=== PATIENT | female | born 1940 | race Caucasian/White ===

== ENCOUNTER 2017-10-08 14:14 | Inpatient (IN) | payer MEDICAID ==
[~2017-10-08] VITALS: Ht 160 cm; Wt 88.9 kg
[~2017-10-08 14:14] MED LIST: GLUCOTROL; HCTZ; METFORMIN; QUINIPRIL; WARFARIN PO
[2017-10-08] MEDS ORDERED: ONDANSETRON HCL 4MG/2ML VIAL IV ONE (15:00)
[2017-10-08 15:32] LABS: BASOPHILS % 0.2 % (0.0-2.0); EOSINOPHILS % 0.4 % (0.0-5.0); HEMATOCRIT. 37.7 % (36.0-48.0); HEMOGLOBIN. 12.5 g/dL (12.0-16.0); LYMPHOCYTES % 4.1 % (20.0-50.0); MEAN CORPUSCULAR HEMOGLOBIN 27.2 pg (28.0-32.0); MEAN CORPUSCULAR VOLUME 82.1 fL (81.0-99.0); MEAN PLATELET VOLUME 7.7 fl (7.4-10.4); MONOCYTES % 5.1 % (2.0-8.0); NEUTROPHILS % 90.2 % (40.0-76.0); PLATELET 257 x1000/uL (130-400); RED BLOOD CELL COUNT 4.59 mill/uL (4.2-5.4); RED CELL DISTRIBUTION WIDTH 17.7 % (11.6-14.6)
[2017-10-08 15:46] LABS: BETA HYDROXYBUTYRATE 0.1 mMol/L (0.0-0.3); CARBON DIOXIDE 31 mEq/L (21-32); CHLORIDE 106 mEq/L (98-107); TROPONIN I 0.14 ng/mL (0.00-0.04)
[2017-10-08 15:49] LABS: AMMONIA < 25 uMol/L (<32)
[2017-10-08 15:53] LABS: CLARITY URINE CLEAR (CLEAR); COLOR URINE YELLOW (YELLOW); KETONES URINE NEGATIVE (NEGATIVE); LEUKOCYTE ESTERASE URINE NEGATIVE (NEGATIVE); NITRITE URINE NEGATIVE (NEGATIVE); OCCULT BLOOD URINE NEGATIVE (NEGATIVE); PH URINE 5.5 (4.5-8.0); PROTEIN URINE TRACE (NEGATIVE); SPECIFIC GRAVITY URINE 1.017 (1.005-1.030); UROBILINOGEN URINE 0.2 E.U./dL (0.2-1.0)
[2017-10-08 16:11] LABS: PROTHROMBIN TIME > 100.0 sec (9.4-11.6)
[2017-10-08 16:12] LABS: INR > 10.0
[2017-10-08] MEDS ORDERED: GUAIFENESIN 200MG/10ML SUGAR FREE UDC PO PRN (18:45)
[2017-10-08] MEDS ORDERED: MAGNESIUM/ALUMINUM HYDROXIDE/SIMETHICONE 30ML UDC PO PRN (18:45)
[2017-10-08] MEDS ORDERED: NA PHOS,M-B/NA PHOS,DI-BA ENEMA 118ML PR PRN (18:45)
[2017-10-08] MEDS ORDERED: IPRATROPIUM/ALBUTEROL 0.5-3(2.5)MG/3ML NEB INH PRN (18:45)
[2017-10-08] MEDS ORDERED: NITROGLYCERIN 0.4MG TABLET SL SL PRN (18:45)
[2017-10-08] MEDS ORDERED: ONDANSETRON HCL 4MG/2ML VIAL IV PRN (18:45)
[2017-10-08] MEDS ORDERED: DIPHENHYDRAMINE 50MG/ML VIAL IV PRN (18:45)
[2017-10-08] MEDS ORDERED: DOCUSATE SODIUM 100MG CAPSULE PO PRN (18:45)
[2017-10-08] MEDS ORDERED: LEVOFLOXACIN 500MG PREMIX 100 ML IV SCH ×2 (18:45→22:15)
[2017-10-08] MEDS: ACETAMINOPHEN 325MG TABLET PO PRN (19:00)
[2017-10-08 19:12] LABS: BG BASE EXCESS -0.5 mmol/L (-2.0-2.0); BG CARBOXYHEMOGLOBIN 1.2 % (0.5-1.5); BG DEOXYHEMOGLOBIN 2.3 % (0.0-5.0); BG FRACTION INSPIRED OXYGEN 28; BG HCO3 ACT 30.9 mmol/L (22.0-26.0); BG METHEMOGLOBIN 0.3 % (0.0-1.5); BG OXYGEN SATURATION 97.7 % (92.0-98.5); BG OXYHEMOGLOBIN 96.2 % (94.0-97.0); BG PCO2 92.3 mmHg (35.0-45.0); BG PH 7.142 (7.350-7.450); BG PO2 150.2 mmHg (75.0-100.0); BG SAMPLE SITE RIGHT RADIAL; BG TOTAL HEMOGLOBIN 12.7 g/dL (12.0-18.0); BG VENT MODE NASAL CANNULA
[2017-10-08 20:03] LABS: FOLIC ACID (FOLATE) SERUM 18.1 ng/mL (>5.38)
[2017-10-08] MEDS ORDERED: FAMOTIDINE 20MG/2ML VIAL IV SCH (21:00)
[2017-10-08 21:44] LABS: BG BASE EXCESS -0.8 mmol/L (-2.0-2.0); BG BILEVEL POS AIRWAY PRESSURE 15/5; BG CARBOXYHEMOGLOBIN 1.2 % (0.5-1.5); BG DEOXYHEMOGLOBIN 3.5 % (0.0-5.0); BG FRACTION INSPIRED OXYGEN 28; BG HCO3 ACT 29.2 mmol/L (22.0-26.0); BG METHEMOGLOBIN 0.3 % (0.0-1.5); BG OXYGEN SATURATION 96.4 % (92.0-98.5); BG PCO2 78.8 mmHg (35.0-45.0); BG PH 7.187 (7.350-7.450); BG PO2 106.5 mmHg (75.0-100.0); BG SAMPLE SITE LEFT RADIAL; BG TOTAL HEMOGLOBIN 12.2 g/dL (12.0-18.0); BG VENT MODE MASK - BIPAP; BG VENT RATE 16 set
[2017-10-08 23:10] LABS: TROPONIN I 0.14 ng/mL (0.00-0.04)
[2017-10-09] VITALS (11 sets, daily range): BP systolic 95–156; BP diastolic 51–77
[2017-10-09] MEDS ORDERED: ZOLPIDEM TARTRATE 5MG TABLET PO PRN (00:55)
[2017-10-09] MEDS ORDERED: DEXTROSE 50% WATER 50ML SYRINGE IV PRN (00:56)
[2017-10-09] MEDS ORDERED: PHYTONADIONE 5MG TABLET PO SCH (01:44)
[2017-10-09] MEDS ORDERED: LEVOFLOXACIN 500MG PREMIX 100 ML IV SCH (02:00)
[2017-10-09] MEDS ORDERED: PHYTONADIONE 10MG/ML AMP PO SCH (02:00)
[2017-10-09] MEDS ORDERED: GABA-531 PO (03:10)
[2017-10-09] MEDS ORDERED: LOSA50TA20 PO (03:10)
[2017-10-09] MEDS ORDERED: LIP40 PO (03:10)
[2017-10-09] MEDS ORDERED: OMEP20TA15 PO (03:10)
[2017-10-09] MEDS ORDERED: GLIM2TAB2 PO (03:10)
[2017-10-09] MEDS ORDERED: RANI150C12 PO (03:11)
[2017-10-09] MEDS ORDERED: CALC-3 PO (03:11)
[2017-10-09] MEDS ORDERED: AMOX-405 PO (03:11)
[2017-10-09] MEDS ORDERED: COR12 PO (03:11)
[2017-10-09] MEDS ORDERED: MULT-1078 PO (03:11)
[2017-10-09] MEDS ORDERED: FISH PO (03:11)
[2017-10-09] MEDS: CEFTRIAXONE 1 G PREMIX 50 ML IV SCH (03:14)
[2017-10-09] MEDS: IPRATROPIUM/ALBUTEROL 0.5-3(2.5)MG/3ML NEB HHN SCH ×5 (04:43→21:04)
[2017-10-09] MEDS: METHYLPREDNISOLONE SOD SUCC 125 MG/2 ML VIAL IV SCH ×3 (06:31→22:03)
[2017-10-09] MEDS: BLOOD SUGAR DIAGNOSTIC STRIP TEST SCH ×4 (07:30→21:00)
[2017-10-09 08:41] LABS: CREATINE KINASE MB FRACTION 3.4 ng/mL (0.5-3.6); TROPONIN I 0.13 ng/mL (0.00-0.04)
[2017-10-09] MEDS: GUAIFENESIN/DM 600MG/30MG ER TAB 12HR PO SCH ×2 (09:02→22:03)
[2017-10-09] MEDS: FAMOTIDINE 20MG/2ML VIAL IV SCH (09:02)
[2017-10-09] MEDS: ZINC SULFATE 220 MG ( 50 ) CAPSULE PO SCH (09:02)
[2017-10-09] MEDS: INSULIN LISPRO 100 UNITS/ML SUBCUT SCH ×4 (09:11→23:15)
[2017-10-09 11:39] LABS: BG BASE EXCESS 1.6 mmol/L (-2.0-2.0); BG BILEVEL POS AIRWAY PRESSURE 18/5; BG CARBOXYHEMOGLOBIN 0.9 % (0.5-1.5); BG DEOXYHEMOGLOBIN 3.6 % (0.0-5.0); BG FRACTION INSPIRED OXYGEN 28; BG HCO3 ACT 27.1 mmol/L (22.0-26.0); BG METHEMOGLOBIN 0.3 % (0.0-1.5); BG OXYGEN SATURATION 96.4 % (92.0-98.5); BG OXYHEMOGLOBIN 95.2 % (94.0-97.0); BG PCO2 46.4 mmHg (35.0-45.0); BG PH 7.385 (7.350-7.450); BG PO2 95.2 mmHg (75.0-100.0); BG SAMPLE SITE RIGHT RADIAL; BG VENT MODE MASK - BIPAP; BG VENT RATE 20 set
[2017-10-09] MEDS ORDERED: INFLUENZA VIRUS VACCINE 0.5ML SYR IM ONE (12:00)
[2017-10-09] MEDS ORDERED: FUROSEMIDE 40MG/4ML VIAL IVP NR (15:30)
[2017-10-09 16:54] LABS: CLARITY URINE CLOUDY (CLEAR); COLOR URINE YELLOW (YELLOW); KETONES URINE NEGATIVE (NEGATIVE); LEUKOCYTE ESTERASE URINE TRACE (NEGATIVE); NITRITE URINE NEGATIVE (NEGATIVE); OCCULT BLOOD URINE 3+ (NEGATIVE); PH URINE 5.5 (4.5-8.0); PROTEIN URINE 1+ (NEGATIVE); SPECIFIC GRAVITY URINE 1.018 (1.005-1.030); UROBILINOGEN URINE 0.2 E.U./dL (0.2-1.0)
[2017-10-09] MEDS: TRAMADOL 50MG TABLET PO PRN (19:54)
[2017-10-10] VITALS (12 sets, daily range): BP systolic 107–169; BP diastolic 61–98
[2017-10-10] MEDS: IPRATROPIUM/ALBUTEROL 0.5-3(2.5)MG/3ML NEB HHN SCH ×6 (01:03→21:46)
[2017-10-10] MEDS: LEVOFLOXACIN 250MG PREMIX 50 ML IV SCH (01:35)
[2017-10-10] MEDS: CEFTRIAXONE 1 G PREMIX 50 ML IV SCH (03:51)
[2017-10-10] MEDS: METHYLPREDNISOLONE SOD SUCC 125 MG/2 ML VIAL IV SCH ×3 (06:15→21:29)
[2017-10-10 06:59] LABS: HEMOGLOBIN. 12.2 g/dL (12.0-16.0); MEAN CORPUSCULAR HEMOGLOBIN 26.3 pg (28.0-32.0); MEAN CORPUSCULAR VOLUME 81.6 fL (81.0-99.0); MEAN PLATELET VOLUME 7.8 fl (7.4-10.4); PLATELET 285 x1000/uL (130-400); RED BLOOD CELL COUNT 4.65 mill/uL (4.2-5.4); RED CELL DISTRIBUTION WIDTH 17.9 % (11.6-14.6)
[2017-10-10] MEDS: BLOOD SUGAR DIAGNOSTIC STRIP TEST SCH ×4 (07:41→20:47)
[2017-10-10 08:25] LABS: CARBON DIOXIDE 33 mEq/L (21-32); CHLORIDE 112 mEq/L (98-107)
[2017-10-10] MEDS: GUAIFENESIN/DM 600MG/30MG ER TAB 12HR PO SCH ×2 (09:14→20:48)
[2017-10-10] MEDS: FAMOTIDINE 20MG/2ML VIAL IV SCH (09:14)
[2017-10-10] MEDS: ZINC SULFATE 220 MG ( 50 ) CAPSULE PO SCH (09:14)
[2017-10-10] MEDS: FUROSEMIDE 40MG/4ML VIAL IVP SCH (09:15)
[2017-10-10] MEDS: INSULIN LISPRO 100 UNITS/ML SUBCUT SCH ×4 (09:16→20:52)
[2017-10-10] MEDS: CLONIDINE 0.1MG TABLET PO PRN (15:13)
[2017-10-10 17:04] LABS: BG BASE EXCESS 8.9 mmol/L (-2.0-2.0); BG CARBOXYHEMOGLOBIN 0.4 % (0.5-1.5); BG DEOXYHEMOGLOBIN 3.1 % (0.0-5.0); BG FRACTION INSPIRED OXYGEN 28; BG HCO3 ACT 34.8 mmol/L (22.0-26.0); BG METHEMOGLOBIN 0.3 % (0.0-1.5); BG OXYGEN SATURATION 96.9 % (92.0-98.5); BG OXYHEMOGLOBIN 96.2 % (94.0-97.0); BG PCO2 53.5 mmHg (35.0-45.0); BG PH 7.431 (7.350-7.450); BG PO2 99.6 mmHg (75.0-100.0); BG SAMPLE SITE RIGHT RADIAL; BG TOTAL HEMOGLOBIN 12.3 g/dL (12.0-18.0); BG VENT MODE NASAL CANNULA
[2017-10-10] MEDS ORDERED: SODIUM POLYSTYRENE SULFONATE 15 G/60 ML BOT PO NR (17:30)
[2017-10-10 18:03] LABS: PLATELET ESTIMATE NORMAL
[2017-10-10] MEDS: ASPIRIN 325MG TABLET PO SCH (20:40)
[2017-10-10] MEDS: TRAMADOL 50MG TABLET PO PRN (20:42)
[2017-10-11] VITALS (12 sets, daily range): BP systolic 115–170; BP diastolic 62–107
[2017-10-11] MEDS: LEVOFLOXACIN 250MG PREMIX 50 ML IV SCH (01:13)
[2017-10-11] MEDS: IPRATROPIUM/ALBUTEROL 0.5-3(2.5)MG/3ML NEB HHN SCH ×6 (01:42→20:20)
[2017-10-11] MEDS: CLONIDINE 0.1MG TABLET PO PRN ×2 (02:23→18:30)
[2017-10-11] MEDS: CEFTRIAXONE 1 G PREMIX 50 ML IV SCH (05:07)
[2017-10-11] MEDS: METHYLPREDNISOLONE SOD SUCC 125 MG/2 ML VIAL IV SCH (05:10)
[2017-10-11] MEDS: BLOOD SUGAR DIAGNOSTIC STRIP TEST SCH ×4 (07:31→20:41)
[2017-10-11] MEDS: INSULIN LISPRO 100 UNITS/ML SUBCUT SCH ×4 (08:45→20:45)
[2017-10-11] MEDS: FUROSEMIDE 40MG/4ML VIAL IVP SCH (08:47)
[2017-10-11] MEDS: FAMOTIDINE 20MG/2ML VIAL IV SCH (08:47)
[2017-10-11] MEDS: ZINC SULFATE 220 MG ( 50 ) CAPSULE PO SCH (08:47)
[2017-10-11] MEDS: GUAIFENESIN/DM 600MG/30MG ER TAB 12HR PO SCH ×2 (08:47→20:39)
[2017-10-11] MEDS: ASPIRIN 325MG TABLET PO SCH (09:00)
[2017-10-11 16:47] LABS: *AMPHETAMINES SCREEN URINE NEGATIVE (NEGATIVE); *BARBITURATES SCREEN URINE NEGATIVE (NEGATIVE); *BENZODIAZEPINES SCREEN URINE NEGATIVE (NEGATIVE); *COCAINE SCREEN URINE NEGATIVE (NEGATIVE); CANNABINOID URINE SCREEN NEGATIVE (NEGATIVE); METHADONE URINE SCREEN NEGATIVE (NEGATIVE); OPIATES URINE SCREEN NEGATIVE (NEGATIVE); PHENCYCLIDINE URINE SCREEN NEGATIVE (NEGATIVE)
[2017-10-11 16:49] LABS: INR 1.9; PROTHROMBIN TIME 19.7 sec (9.4-11.6)
[2017-10-11 17:03] LABS: ETHANOL BLOOD < 10 mg/dL; HDL CHOLESTEROL 26 mg/dL (40-59); LDL CHOLESTEROL 35 mg/dL (5-100); T4 FREE 1.05 ng/dL (0.76-1.46)
[2017-10-11] MEDS: PREDNISONE 20MG TABLET PO SCH (17:28)
[2017-10-12] VITALS (12 sets, daily range): BP systolic 124–168; BP diastolic 72–115
[2017-10-12] MEDS: IPRATROPIUM/ALBUTEROL 0.5-3(2.5)MG/3ML NEB HHN SCH ×6 (00:26→20:55)
[2017-10-12] MEDS: LEVOFLOXACIN 250MG PREMIX 50 ML IV SCH (01:43)
[2017-10-12] MEDS: CLONIDINE 0.1MG TABLET PO PRN ×3 (02:15→17:50)
[2017-10-12] MEDS ORDERED: CEFTRIAXONE 1 G PREMIX 50 ML IV SCH (03:00)
[2017-10-12 07:09] LABS: INR 1.8; PROTHROMBIN TIME 18.9 sec (9.4-11.6)
[2017-10-12] MEDS: BLOOD SUGAR DIAGNOSTIC STRIP TEST SCH ×4 (07:19→21:23)
[2017-10-12] MEDS: FUROSEMIDE 40MG/4ML VIAL IVP SCH (08:15)
[2017-10-12] MEDS: INSULIN LISPRO 100 UNITS/ML SUBCUT SCH ×4 (08:17→21:28)
[2017-10-12] MEDS: FAMOTIDINE 20MG/2ML VIAL IV SCH (08:18)
[2017-10-12] MEDS: GUAIFENESIN/DM 600MG/30MG ER TAB 12HR PO SCH ×2 (08:19→21:23)
[2017-10-12] MEDS: ZINC SULFATE 220 MG ( 50 ) CAPSULE PO SCH (08:19)
[2017-10-12] MEDS: PREDNISONE 20MG TABLET PO SCH (08:19)
[2017-10-12] MEDS: ASPIRIN 325MG TABLET PO SCH (08:44)
[2017-10-12] MEDS: ENOXAPARIN 100MG/ML SYR SUBCUT SCH ×2 (09:36→21:24)
[2017-10-12] MEDS ORDERED: NA PHOS,M-B/NA PHOS,DI-BA ENEMA 118ML PR NR (10:15)
[2017-10-12] MEDS: LACTULOSE 20G/30ML UDC PO PRN ×2 (10:43→20:10)
[2017-10-12] MEDS: NYSTATIN 100,000 UNITS/ML 5ML UDC SSW SCH ×2 (14:08→17:36)
[2017-10-12] MEDS: ACETAMINOPHEN 325MG TABLET PO PRN (17:37)
[2017-10-12] MEDS ORDERED: WARFARIN SODIUM 3MG TABLET PO NR (18:00)
[2017-10-12] MEDS ORDERED: WARFARIN SODIUM 4MG TABLET PO NR (18:00)
[2017-10-12] MEDS: TRAMADOL 50MG TABLET PO PRN (20:10)
[2017-10-13] VITALS (12 sets, daily range): BP systolic 108–151; BP diastolic 60–95
[2017-10-13] MEDS: CLONIDINE 0.1MG TABLET PO PRN (00:09)
[2017-10-13] MEDS: NYSTATIN 100,000 UNITS/ML 5ML UDC SSW SCH ×4 (00:09→17:47)
[2017-10-13] MEDS: IPRATROPIUM/ALBUTEROL 0.5-3(2.5)MG/3ML NEB HHN SCH ×6 (01:00→20:34)
[2017-10-13] MEDS: LEVOFLOXACIN 250MG PREMIX 50 ML IV SCH (01:23)
[2017-10-13] MEDS ORDERED: CEFTRIAXONE 1 G PREMIX 50 ML IV SCH (03:00)
[2017-10-13] MEDS: LACTULOSE 20G/30ML UDC PO PRN (05:42)
[2017-10-13 06:25] LABS: INR 2.2
[2017-10-13] MEDS: BLOOD SUGAR DIAGNOSTIC STRIP TEST SCH ×4 (07:57→20:59)
[2017-10-13] MEDS: FAMOTIDINE 20MG/2ML VIAL IV SCH ×2 (08:51→20:59)
[2017-10-13] MEDS: FUROSEMIDE 40MG/4ML VIAL IVP SCH (08:51)
[2017-10-13] MEDS: ZINC SULFATE 220 MG ( 50 ) CAPSULE PO SCH (08:52)
[2017-10-13] MEDS: ASPIRIN 325MG TABLET PO SCH (08:52)
[2017-10-13] MEDS: PREDNISONE 20MG TABLET PO SCH (08:52)
[2017-10-13] MEDS: ENOXAPARIN 100MG/ML SYR SUBCUT SCH (08:52)
[2017-10-13] MEDS: GUAIFENESIN/DM 600MG/30MG ER TAB 12HR PO SCH ×2 (08:52→20:59)
[2017-10-13] MEDS: INSULIN LISPRO 100 UNITS/ML SUBCUT SCH ×4 (08:53→21:05)
[2017-10-13] MEDS: TRAMADOL 50MG TABLET PO PRN ×2 (09:06→17:49)
[2017-10-13] MEDS ORDERED: NA PHOS,M-B/NA PHOS,DI-BA ENEMA 118ML PR NR (10:15)
[2017-10-13] MEDS ORDERED: LACTULOSE 20G/30ML UDC PO NR (10:15)
[2017-10-13] MEDS ORDERED: BISACODYL 10MG SUPP PR NR (10:15)
[2017-10-13] MEDS ORDERED: DOCUSATE SODIUM 250MG CAPSULE PO NR (12:00)
[2017-10-13] MEDS ORDERED: BISACODYL 5MG TABLET PO PRN (12:00)
[2017-10-13 12:16] LABS: HEMATOCRIT. 39.5 % (36.0-48.0); HEMOGLOBIN. 12.5 g/dL (12.0-16.0); MEAN CORPUSCULAR HEMOGLOBIN 25.6 pg (28.0-32.0); MEAN CORPUSCULAR VOLUME 80.8 fL (81.0-99.0); MEAN PLATELET VOLUME 7.9 fl (7.4-10.4); PLATELET 203 x1000/uL (130-400); RED BLOOD CELL COUNT 4.89 mill/uL (4.2-5.4); RED CELL DISTRIBUTION WIDTH 18.1 % (11.6-14.6)
[2017-10-13 13:16] LABS: PLATELET ESTIMATE NORMAL
[2017-10-13 13:28] LABS: CHLORIDE 93 mEq/L (98-107)
[2017-10-13 14:05] LABS: CARBON DIOXIDE 40 mEq/L (21-32)
[2017-10-13 15:32] LABS: BG BASE EXCESS 12.9 mmol/L (-2.0-2.0); BG CARBOXYHEMOGLOBIN 1.2 % (0.5-1.5); BG DEOXYHEMOGLOBIN 4.5 % (0.0-5.0); BG FRACTION INSPIRED OXYGEN 24; BG HCO3 ACT 38.9 mmol/L (22.0-26.0); BG METHEMOGLOBIN 0.3 % (0.0-1.5); BG OXYGEN SATURATION 95.4 % (92.0-98.5); BG PH 7.467 (7.350-7.450); BG PO2 82.8 mmHg (75.0-100.0); BG SAMPLE SITE RIGHT RADIAL; BG VENT MODE NASAL CANNULA
[2017-10-13] MEDS: LEVOFLOXACIN 500MG PREMIX 100 ML IV SCH (17:47)
[2017-10-13] MEDS ORDERED: WARFARIN SODIUM 5MG TABLET PO SCH (18:00)
[2017-10-14] VITALS (12 sets, daily range): BP systolic 91–128; BP diastolic 43–75
[2017-10-14] MEDS: NYSTATIN 100,000 UNITS/ML 5ML UDC SSW SCH ×4 (00:13→17:11)
[2017-10-14] MEDS: IPRATROPIUM/ALBUTEROL 0.5-3(2.5)MG/3ML NEB HHN SCH ×6 (00:26→20:36)
[2017-10-14] MEDS: ACETAMINOPHEN 325MG TABLET PO PRN (04:52)
[2017-10-14 05:42] LABS: INR 2.6; PROTHROMBIN TIME 26.9 sec (9.4-11.6)
[2017-10-14] MEDS: BLOOD SUGAR DIAGNOSTIC STRIP TEST SCH ×4 (08:10→21:00)
[2017-10-14] MEDS: ASPIRIN 325MG TABLET PO SCH ×2 (09:44→09:50)
[2017-10-14] MEDS: PREDNISONE 20MG TABLET PO SCH (09:44)
[2017-10-14] MEDS: FUROSEMIDE 40MG/4ML VIAL IVP SCH (09:44)
[2017-10-14] MEDS: ZINC SULFATE 220 MG ( 50 ) CAPSULE PO SCH (09:44)
[2017-10-14] MEDS: CLONIDINE 0.1MG TABLET PO PRN (09:50)
[2017-10-14] MEDS: DOCUSATE SODIUM 250MG CAPSULE PO SCH (09:50)
[2017-10-14] MEDS: INSULIN LISPRO 100 UNITS/ML SUBCUT SCH ×4 (09:52→22:07)
[2017-10-14] MEDS: GUAIFENESIN/DM 600MG/30MG ER TAB 12HR PO SCH ×2 (09:53→21:05)
[2017-10-14] MEDS: FAMOTIDINE 20MG/2ML VIAL IV SCH ×2 (12:17→21:05)
[2017-10-14] MEDS: LEVOFLOXACIN 500MG PREMIX 100 ML IV SCH (17:15)
[2017-10-14] MEDS ORDERED: WARFARIN SODIUM 4MG TABLET PO SCH (18:00)
[2017-10-15] VITALS (9 sets, daily range): BP systolic 97–126; BP diastolic 47–72
[2017-10-15] MEDS: NYSTATIN 100,000 UNITS/ML 5ML UDC SSW SCH ×4 (00:26→18:51)
[2017-10-15] MEDS: IPRATROPIUM/ALBUTEROL 0.5-3(2.5)MG/3ML NEB HHN SCH ×6 (00:54→20:17)
[2017-10-15] MEDS: ACETAMINOPHEN 325MG TABLET PO PRN (05:37)
[2017-10-15 06:11] LABS: INR 2.3; PROTHROMBIN TIME 23.4 sec (9.4-11.6)
[2017-10-15] MEDS: BLOOD SUGAR DIAGNOSTIC STRIP TEST SCH ×4 (08:03→21:00)
[2017-10-15] MEDS: GUAIFENESIN/DM 600MG/30MG ER TAB 12HR PO SCH ×2 (08:04→22:06)
[2017-10-15] MEDS: FAMOTIDINE 20MG/2ML VIAL IV SCH ×2 (08:04→22:06)
[2017-10-15] MEDS: PREDNISONE 20MG TABLET PO SCH (08:04)
[2017-10-15] MEDS: DOCUSATE SODIUM 250MG CAPSULE PO SCH (08:04)
[2017-10-15] MEDS: FUROSEMIDE 40MG/4ML VIAL IVP SCH (08:04)
[2017-10-15] MEDS: ZINC SULFATE 220 MG ( 50 ) CAPSULE PO SCH (08:04)
[2017-10-15] MEDS: INSULIN LISPRO 100 UNITS/ML SUBCUT SCH ×4 (08:06→22:48)
[2017-10-15 16:08] LABS: HEMATOCRIT. 39.1 % (36.0-48.0); HEMOGLOBIN. 12.4 g/dL (12.0-16.0); MEAN CORPUSCULAR HEMOGLOBIN 25.6 pg (28.0-32.0); MEAN CORPUSCULAR VOLUME 81.2 fL (81.0-99.0); MEAN PLATELET VOLUME 8.9 fl (7.4-10.4); PLATELET 160 x1000/uL (130-400); RED BLOOD CELL COUNT 4.82 mill/uL (4.2-5.4); RED CELL DISTRIBUTION WIDTH 18.5 % (11.6-14.6)
[2017-10-15 16:09] LABS: CHLORIDE 90 mEq/L (98-107)
[2017-10-15 16:11] LABS: CARBON DIOXIDE 33 mEq/L (21-32)
[2017-10-15 17:53] LABS: PLATELET ESTIMATE NORMAL
[2017-10-15] MEDS ORDERED: WARFARIN SODIUM 4MG TABLET PO SCH (18:00)
[2017-10-15] MEDS: LEVOFLOXACIN 500MG PREMIX 100 ML IV SCH (18:51)
[2017-10-15] MEDS ORDERED: IOHEXOL-350 100 ML BOTTLE ONE (22:52)
[2017-10-16] VITALS (12 sets, daily range): BP systolic 105–126; BP diastolic 53–76
[2017-10-16] MEDS: NYSTATIN 100,000 UNITS/ML 5ML UDC SSW SCH ×5 (00:04→23:27)
[2017-10-16] MEDS: IPRATROPIUM/ALBUTEROL 0.5-3(2.5)MG/3ML NEB HHN SCH ×6 (00:35→21:14)
[2017-10-16] MEDS: BLOOD SUGAR DIAGNOSTIC STRIP TEST SCH ×4 (07:30→21:19)
[2017-10-16 07:40] LABS: PROTHROMBIN TIME 21.4 sec (9.4-11.6)
[2017-10-16] MEDS: FUROSEMIDE 40MG/4ML VIAL IVP SCH (08:28)
[2017-10-16] MEDS: ASPIRIN 325MG TABLET PO SCH (08:28)
[2017-10-16] MEDS: GUAIFENESIN/DM 600MG/30MG ER TAB 12HR PO SCH ×2 (08:29→21:18)
[2017-10-16] MEDS: ZINC SULFATE 220 MG ( 50 ) CAPSULE PO SCH (08:29)
[2017-10-16] MEDS: DOCUSATE SODIUM 250MG CAPSULE PO SCH (08:29)
[2017-10-16] MEDS: FAMOTIDINE 20MG/2ML VIAL IV SCH ×2 (08:29→21:18)
[2017-10-16] MEDS: PREDNISONE 20MG TABLET PO SCH (08:30)
[2017-10-16] MEDS: INSULIN LISPRO 100 UNITS/ML SUBCUT SCH ×4 (08:32→21:33)
[2017-10-16] MEDS ORDERED: LACTULOSE 20G/30ML UDC PO NR (11:00)
[2017-10-16] MEDS ORDERED: DIATR MEGLU/DIATRIZOATE SOLN 30ML PO SCH (11:00)
[2017-10-16] MEDS ORDERED: IOHEXOL-350 100 ML BOTTLE ONE (14:04)
[2017-10-16] MEDS: LEVOFLOXACIN 500MG PREMIX 100 ML IV SCH (17:50)
[2017-10-16] MEDS ORDERED: WARFARIN SODIUM 5MG TABLET PO SCH (18:00)
[2017-10-16] MEDS ORDERED: PHYTONADIONE 10MG/ML AMP SUBCUT NR ×2 (18:15→23:55)
[2017-10-16] MEDS: ACETAMINOPHEN 325MG TABLET PO PRN (21:19)
[2017-10-17] VITALS (12 sets, daily range): BP systolic 101–136; BP diastolic 54–92
[2017-10-17] MEDS: IPRATROPIUM/ALBUTEROL 0.5-3(2.5)MG/3ML NEB HHN SCH ×6 (00:33→20:25)
[2017-10-17] MEDS: NYSTATIN 100,000 UNITS/ML 5ML UDC SSW SCH ×3 (05:32→18:00)
[2017-10-17 06:54] LABS: PARTIAL THROMBOPLASTIN TIME 28.3 sec (23.4-31.0); PROTHROMBIN TIME 21.2 sec (9.4-11.6)
[2017-10-17] MEDS: BLOOD SUGAR DIAGNOSTIC STRIP TEST SCH ×4 (08:23→21:39)
[2017-10-17] MEDS: INSULIN LISPRO 100 UNITS/ML SUBCUT SCH ×4 (08:30→21:39)
[2017-10-17] MEDS ORDERED: PHYTONADIONE 10MG/ML AMP SUBCUT NR (09:00)
[2017-10-17] MEDS: FUROSEMIDE 40MG/4ML VIAL IVP SCH (09:46)
[2017-10-17] MEDS: ASPIRIN 325MG TABLET PO SCH (09:47)
[2017-10-17] MEDS: ZINC SULFATE 220 MG ( 50 ) CAPSULE PO SCH (09:47)
[2017-10-17] MEDS: DOCUSATE SODIUM 250MG CAPSULE PO SCH (09:47)
[2017-10-17] MEDS: PANTOPRAZOLE SODIUM 40 MG/VIAL IV SCH (09:47)
[2017-10-17] MEDS: GUAIFENESIN/DM 600MG/30MG ER TAB 12HR PO SCH ×2 (09:47→21:38)
[2017-10-18] VITALS (21 sets, daily range): BP systolic 100–139; BP diastolic 58–88
[2017-10-18] MEDS: IPRATROPIUM/ALBUTEROL 0.5-3(2.5)MG/3ML NEB HHN SCH ×6 (00:15→21:09)
[2017-10-18] MEDS: NYSTATIN 100,000 UNITS/ML 5ML UDC SSW SCH ×5 (00:26→22:52)
[2017-10-18] MEDS: ACETAMINOPHEN 325MG TABLET PO PRN (06:19)
[2017-10-18 06:40] LABS: INR 1.2; PROTHROMBIN TIME 12.6 sec (9.4-11.6)
[2017-10-18] MEDS: BLOOD SUGAR DIAGNOSTIC STRIP TEST SCH ×4 (07:51→21:00)
[2017-10-18] MEDS: INSULIN LISPRO 100 UNITS/ML SUBCUT SCH ×4 (08:00→21:39)
[2017-10-18] MEDS: ASPIRIN 325MG TABLET PO SCH (08:42)
[2017-10-18] MEDS: GUAIFENESIN/DM 600MG/30MG ER TAB 12HR PO SCH ×2 (08:42→21:19)
[2017-10-18] MEDS: DOCUSATE SODIUM 250MG CAPSULE PO SCH (08:42)
[2017-10-18] MEDS: ZINC SULFATE 220 MG ( 50 ) CAPSULE PO SCH (08:43)
[2017-10-18] MEDS: PANTOPRAZOLE SODIUM 40 MG/VIAL IV SCH (08:52)
[2017-10-18] MEDS: FUROSEMIDE 40MG/4ML VIAL IVP SCH (08:53)
[2017-10-18] MEDS ORDERED: LIDOCAINE HCL 1% 20ML VIAL (Pyxis) INJ ONE (11:00)
[2017-10-18] MEDS ORDERED: SODIUM BICARBONATE 4% (2.4MEQ) 5ML VIAL IV ONE (11:02)
[2017-10-18] MEDS ORDERED: FENTANYL CITRATE/PF 50MCG/ML 2ML VIAL ONE (11:12)
[2017-10-18] MEDS ORDERED: FENTANYL CITRATE/PF 50MCG/ML 2ML VIAL IV ONE (12:00)
[2017-10-18] MEDS: HYDROCODONE/ACETAMINOPHEN 5/325MG TABLET PO PRN (16:23)
[2017-10-18] MEDS ORDERED: WARFARIN SODIUM 3MG TABLET PO NR (18:00)
[2017-10-18] MEDS: METOPROLOL TARTRATE 25MG TABLET PO SCH (21:19)
[2017-10-19] VITALS (13 sets, daily range): BP systolic 91–134; BP diastolic 47–75
[2017-10-19] MEDS: IPRATROPIUM/ALBUTEROL 0.5-3(2.5)MG/3ML NEB HHN SCH ×6 (01:21→20:12)
[2017-10-19] MEDS: NYSTATIN 100,000 UNITS/ML 5ML UDC SSW SCH ×2 (05:55→13:11)
[2017-10-19 06:42] LABS: INR 1.2; PROTHROMBIN TIME 12.1 sec (9.4-11.6)
[2017-10-19] MEDS: BLOOD SUGAR DIAGNOSTIC STRIP TEST SCH ×4 (08:10→21:00)
[2017-10-19] MEDS: PANTOPRAZOLE SODIUM 40 MG/VIAL IV SCH (08:26)
[2017-10-19] MEDS: ZINC SULFATE 220 MG ( 50 ) CAPSULE PO SCH (08:26)
[2017-10-19] MEDS: FUROSEMIDE 40MG/4ML VIAL IVP SCH (08:26)
[2017-10-19] MEDS: GUAIFENESIN/DM 600MG/30MG ER TAB 12HR PO SCH ×2 (08:27→21:06)
[2017-10-19] MEDS: ASPIRIN 325MG TABLET PO SCH (08:27)
[2017-10-19] MEDS: METOPROLOL TARTRATE 25MG TABLET PO SCH ×2 (08:27→21:00)
[2017-10-19] MEDS: DOCUSATE SODIUM 250MG CAPSULE PO SCH (08:27)
[2017-10-19] MEDS: INSULIN LISPRO 100 UNITS/ML SUBCUT SCH ×4 (08:29→21:47)
[2017-10-19] MEDS: HYDROCODONE/ACETAMINOPHEN 5/325MG TABLET PO PRN (11:10)
[2017-10-19] MEDS: PIPERACILLIN/TAZ 3.375G PREMIX 50 ML IV SCH ×2 (15:50→18:33)
[2017-10-19] MEDS ORDERED: WARFARIN SODIUM 5MG TABLET PO SCH (18:00)
[2017-10-20] VITALS (12 sets, daily range): BP systolic 92–122; BP diastolic 50–85
[2017-10-20] MEDS: PIPERACILLIN/TAZ 3.375G PREMIX 50 ML IV SCH ×4 (00:26→17:38)
[2017-10-20] MEDS: IPRATROPIUM/ALBUTEROL 0.5-3(2.5)MG/3ML NEB HHN SCH ×6 (00:45→20:09)
[2017-10-20] MEDS: ACETAMINOPHEN 325MG TABLET PO PRN (04:21)
[2017-10-20] MEDS: BLOOD SUGAR DIAGNOSTIC STRIP TEST SCH ×4 (07:30→21:53)
[2017-10-20 07:51] LABS: INR 1.1; PROTHROMBIN TIME 11.9 sec (9.4-11.6)
[2017-10-20 08:05] LABS: BASOPHILS % 0.3 % (0.0-2.0); HEMATOCRIT. 31.8 % (36.0-48.0); HEMOGLOBIN. 10.6 g/dL (12.0-16.0); MEAN CORPUSCULAR VOLUME 80.8 fL (81.0-99.0); MEAN PLATELET VOLUME 8.4 fl (7.4-10.4); MONOCYTES % 7.2 % (2.0-8.0); NEUTROPHILS % 82.5 % (40.0-76.0); PLATELET 228 x1000/uL (130-400); RED BLOOD CELL COUNT 3.94 mill/uL (4.2-5.4); RED CELL DISTRIBUTION WIDTH 19.4 % (11.6-14.6)
[2017-10-20 08:22] LABS: CARBON DIOXIDE 39 mEq/L (21-32); CHLORIDE 90 mEq/L (98-107)
[2017-10-20] MEDS: INSULIN LISPRO 100 UNITS/ML SUBCUT SCH ×4 (08:40→22:02)
[2017-10-20] MEDS: ASPIRIN 325MG TABLET PO SCH (08:41)
[2017-10-20] MEDS: PANTOPRAZOLE SODIUM 40 MG/VIAL IV SCH (08:41)
[2017-10-20] MEDS: FUROSEMIDE 40MG/4ML VIAL IVP SCH (08:41)
[2017-10-20] MEDS: GUAIFENESIN/DM 600MG/30MG ER TAB 12HR PO SCH ×2 (08:42→21:54)
[2017-10-20] MEDS: ZINC SULFATE 220 MG ( 50 ) CAPSULE PO SCH (08:42)
[2017-10-20] MEDS: DOCUSATE SODIUM 250MG CAPSULE PO SCH (08:42)
[2017-10-20] MEDS: METOPROLOL TARTRATE 25MG TABLET PO SCH ×2 (08:42→21:00)
[2017-10-20] MEDS ORDERED: POTASSIUM CHLORIDE INJ 40 MEQ in DEXT 5% WATER 500 ML IV NR (11:00)
[2017-10-20] MEDS: HYDROCODONE/ACETAMINOPHEN 5/325MG TABLET PO PRN (15:52)
[2017-10-20] MEDS ORDERED: WARFARIN SODIUM 5MG TABLET PO SCH (18:00)
[2017-10-21] VITALS (12 sets, daily range): BP systolic 99–143; BP diastolic 54–94
[2017-10-21] MEDS: IPRATROPIUM/ALBUTEROL 0.5-3(2.5)MG/3ML NEB HHN SCH ×5 (00:16→15:43)
[2017-10-21] MEDS: PIPERACILLIN/TAZ 3.375G PREMIX 50 ML IV SCH ×5 (00:32→22:57)
[2017-10-21] MEDS: BLOOD SUGAR DIAGNOSTIC STRIP TEST SCH ×3 (07:52→17:03)
[2017-10-21] MEDS: DOCUSATE SODIUM 250MG CAPSULE PO SCH (09:00)
[2017-10-21] MEDS: FUROSEMIDE 40MG/4ML VIAL IVP SCH (09:30)
[2017-10-21] MEDS: ZINC SULFATE 220 MG ( 50 ) CAPSULE PO SCH (09:31)
[2017-10-21] MEDS: GUAIFENESIN/DM 600MG/30MG ER TAB 12HR PO SCH ×2 (09:31→22:55)
[2017-10-21] MEDS: FAMOTIDINE 20MG TABLET PO SCH ×2 (09:31→22:55)
[2017-10-21] MEDS: ASPIRIN 325MG TABLET PO SCH (09:31)
[2017-10-21] MEDS: ACETAMINOPHEN 325MG TABLET PO PRN (09:34)
[2017-10-21] MEDS: METOPROLOL TARTRATE 25MG TABLET PO SCH ×2 (09:34→22:56)
[2017-10-21] MEDS: INSULIN LISPRO 100 UNITS/ML SUBCUT SCH ×4 (09:36→22:57)
[2017-10-21 09:59] LABS: BG BASE EXCESS 10.7 mmol/L (-2.0-2.0); BG CARBOXYHEMOGLOBIN 0.9 % (0.5-1.5); BG DEOXYHEMOGLOBIN 5.3 % (0.0-5.0); BG FRACTION INSPIRED OXYGEN 21; BG HCO3 ACT 34.9 mmol/L (22.0-26.0); BG METHEMOGLOBIN 0.3 % (0.0-1.5); BG OXYGEN SATURATION 94.6 % (92.0-98.5); BG OXYHEMOGLOBIN 93.5 % (94.0-97.0); BG PCO2 44.8 mmHg (35.0-45.0); BG PH 7.509 (7.350-7.450); BG PO2 72.1 mmHg (75.0-100.0); BG SAMPLE SITE LEFT RADIAL; BG TOTAL HEMOGLOBIN 11.2 g/dL (12.0-18.0); BG VENT MODE ROOM AIR
[2017-10-21 11:42] LABS: BASOPHILS % 0.4 % (0.0-2.0); EOSINOPHILS % 1.5 % (0.0-5.0); HEMATOCRIT. 30.2 % (36.0-48.0); HEMOGLOBIN. 10.1 g/dL (12.0-16.0); LYMPHOCYTES % 10.4 % (20.0-50.0); MEAN CORPUSCULAR HEMOGLOBIN 27.1 pg (28.0-32.0); MEAN CORPUSCULAR VOLUME 81.1 fL (81.0-99.0); MEAN PLATELET VOLUME 8.1 fl (7.4-10.4); MONOCYTES % 6.3 % (2.0-8.0); NEUTROPHILS % 81.4 % (40.0-76.0); PLATELET 230 x1000/uL (130-400); RED BLOOD CELL COUNT 3.72 mill/uL (4.2-5.4); RED CELL DISTRIBUTION WIDTH 19.8 % (11.6-14.6)
[2017-10-21 11:45] LABS: INR 1.2
[2017-10-21 12:07] LABS: CARBON DIOXIDE 36 mEq/L (21-32); CHLORIDE 92 mEq/L (98-107)
[2017-10-21] MEDS ORDERED: KCL 20MEQ/100ML PREMIX 100 ML IV ONE (13:30)
[2017-10-21] MEDS ORDERED: POTASSIUM CHLORIDE INJ 40 MEQ in SODIUM CHLORIDE 0.9% 250 ML IV NR (14:30)
[2017-10-21] MEDS ORDERED: WARFARIN SODIUM 5MG TABLET PO NR (18:00)
[2017-10-22] VITALS (12 sets, daily range): BP systolic 88–155; BP diastolic 54–99
[2017-10-22] MEDS: HYDROCODONE/ACETAMINOPHEN 5/325MG TABLET PO PRN (00:03)
[2017-10-22] MEDS: IPRATROPIUM/ALBUTEROL 0.5-3(2.5)MG/3ML NEB HHN SCH ×6 (01:17→20:24)
[2017-10-22] MEDS: PIPERACILLIN/TAZ 3.375G PREMIX 50 ML IV SCH ×4 (05:57→23:54)
[2017-10-22 06:05] LABS: BASOPHILS % 0.7 % (0.0-2.0); EOSINOPHILS % 2.9 % (0.0-5.0); HEMATOCRIT. 31.9 % (36.0-48.0); HEMOGLOBIN. 10.6 g/dL (12.0-16.0); INR 1.2; LYMPHOCYTES % 19.3 % (20.0-50.0); MEAN CORPUSCULAR HEMOGLOBIN 27.3 pg (28.0-32.0); MEAN CORPUSCULAR VOLUME 81.9 fL (81.0-99.0); MONOCYTES % 7.8 % (2.0-8.0); NEUTROPHILS % 69.3 % (40.0-76.0); PLATELET 234 x1000/uL (130-400); PROTHROMBIN TIME 12.2 sec (9.4-11.6); RED CELL DISTRIBUTION WIDTH 20.4 % (11.6-14.6)
[2017-10-22 06:28] LABS: CHLORIDE 96 mEq/L (98-107)
[2017-10-22 06:42] LABS: CARBON DIOXIDE 28 mEq/L (21-32)
[2017-10-22] MEDS: BLOOD SUGAR DIAGNOSTIC STRIP TEST SCH ×5 (07:30→21:11)
[2017-10-22] MEDS: FUROSEMIDE 40MG/4ML VIAL IVP SCH (08:48)
[2017-10-22] MEDS: GUAIFENESIN/DM 600MG/30MG ER TAB 12HR PO SCH ×2 (08:48→21:07)
[2017-10-22] MEDS: ASPIRIN 325MG TABLET PO SCH (08:48)
[2017-10-22] MEDS: FAMOTIDINE 20MG TABLET PO SCH ×2 (08:48→21:07)
[2017-10-22] MEDS: ZINC SULFATE 220 MG ( 50 ) CAPSULE PO SCH (08:48)
[2017-10-22] MEDS: METOPROLOL TARTRATE 25MG TABLET PO SCH ×2 (08:49→21:07)
[2017-10-22] MEDS: INSULIN LISPRO 100 UNITS/ML SUBCUT SCH ×4 (08:49→21:10)
[2017-10-22] MEDS: DOCUSATE SODIUM 250MG CAPSULE PO SCH (08:50)
[2017-10-22] MEDS ORDERED: WARFARIN SODIUM 7.5MG TABLET PO SCH (18:00)
[2017-10-23] VITALS (12 sets, daily range): BP systolic 92–135; BP diastolic 57–98
[2017-10-23] MEDS: IPRATROPIUM/ALBUTEROL 0.5-3(2.5)MG/3ML NEB HHN SCH ×6 (00:39→21:57)
[2017-10-23] MEDS: PIPERACILLIN/TAZ 3.375G PREMIX 50 ML IV SCH ×4 (05:33→23:33)
[2017-10-23] MEDS: ACETAMINOPHEN 325MG TABLET PO PRN (06:21)
[2017-10-23 06:32] LABS: BASOPHILS % 0.5 % (0.0-2.0); EOSINOPHILS % 3.5 % (0.0-5.0); HEMATOCRIT. 31.8 % (36.0-48.0); HEMOGLOBIN. 10.5 g/dL (12.0-16.0); LYMPHOCYTES % 12.1 % (20.0-50.0); MEAN CORPUSCULAR HEMOGLOBIN 27.2 pg (28.0-32.0); MEAN CORPUSCULAR VOLUME 82.1 fL (81.0-99.0); MEAN PLATELET VOLUME 7.9 fl (7.4-10.4); MONOCYTES % 3.7 % (2.0-8.0); NEUTROPHILS % 80.2 % (40.0-76.0); PLATELET 233 x1000/uL (130-400); RED BLOOD CELL COUNT 3.88 mill/uL (4.2-5.4); RED CELL DISTRIBUTION WIDTH 20.7 % (11.6-14.6)
[2017-10-23 06:49] LABS: INR 1.3; PROTHROMBIN TIME 13.4 sec (9.4-11.6)
[2017-10-23 07:22] LABS: CHLORIDE 95 mEq/L (98-107)
[2017-10-23 07:52] LABS: CARBON DIOXIDE 35 mEq/L (21-32)
[2017-10-23] MEDS: BLOOD SUGAR DIAGNOSTIC STRIP TEST SCH ×4 (08:09→21:00)
[2017-10-23] MEDS: INSULIN LISPRO 100 UNITS/ML SUBCUT SCH ×4 (08:44→21:45)
[2017-10-23] MEDS ORDERED: POTASSIUM CHLORIDE 20MEQ/PACKET PO SCH (08:45)
[2017-10-23] MEDS: FAMOTIDINE 20MG TABLET PO SCH ×2 (08:48→21:14)
[2017-10-23] MEDS: DOCUSATE SODIUM 250MG CAPSULE PO SCH (08:48)
[2017-10-23] MEDS: ASPIRIN 325MG TABLET PO SCH (08:48)
[2017-10-23] MEDS: GUAIFENESIN/DM 600MG/30MG ER TAB 12HR PO SCH ×2 (08:48→21:14)
[2017-10-23] MEDS: ZINC SULFATE 220 MG ( 50 ) CAPSULE PO SCH (08:48)
[2017-10-23] MEDS: METOPROLOL TARTRATE 25MG TABLET PO SCH ×2 (08:49→21:00)
[2017-10-23] MEDS: FUROSEMIDE 40MG/4ML VIAL IVP SCH (08:49)
[2017-10-23] MEDS ORDERED: WARFARIN SODIUM 10MG TABLET PO SCH (18:00)
[2017-10-24] VITALS (12 sets, daily range): BP systolic 97–131; BP diastolic 56–86
[2017-10-24] MEDS: IPRATROPIUM/ALBUTEROL 0.5-3(2.5)MG/3ML NEB HHN SCH ×6 (00:56→20:54)
[2017-10-24] MEDS: ACETAMINOPHEN 325MG TABLET PO PRN (03:31)
[2017-10-24] MEDS: PIPERACILLIN/TAZ 3.375G PREMIX 50 ML IV SCH ×3 (05:22→18:31)
[2017-10-24 06:31] LABS: BASOPHILS % 0.5 % (0.0-2.0); EOSINOPHILS % 1.8 % (0.0-5.0); HEMATOCRIT. 33.9 % (36.0-48.0); HEMOGLOBIN. 11.1 g/dL (12.0-16.0); LYMPHOCYTES % 19.1 % (20.0-50.0); MEAN CORPUSCULAR HEMOGLOBIN 26.7 pg (28.0-32.0); MEAN PLATELET VOLUME 7.6 fl (7.4-10.4); MONOCYTES % 8.3 % (2.0-8.0); NEUTROPHILS % 70.3 % (40.0-76.0); PLATELET 227 x1000/uL (130-400); RED BLOOD CELL COUNT 4.13 mill/uL (4.2-5.4); RED CELL DISTRIBUTION WIDTH 20.3 % (11.6-14.6)
[2017-10-24 07:05] LABS: INR 1.6; PROTHROMBIN TIME 16.9 sec (9.4-11.6)
[2017-10-24] MEDS: BLOOD SUGAR DIAGNOSTIC STRIP TEST SCH ×4 (08:20→21:00)
[2017-10-24] MEDS: ZINC SULFATE 220 MG ( 50 ) CAPSULE PO SCH (08:35)
[2017-10-24] MEDS: METOPROLOL TARTRATE 25MG TABLET PO SCH ×2 (08:35→21:00)
[2017-10-24] MEDS: DOCUSATE SODIUM 250MG CAPSULE PO SCH (08:35)
[2017-10-24] MEDS: ASPIRIN 325MG TABLET PO SCH (08:35)
[2017-10-24] MEDS: FAMOTIDINE 20MG TABLET PO SCH ×2 (08:35→21:06)
[2017-10-24] MEDS: GUAIFENESIN/DM 600MG/30MG ER TAB 12HR PO SCH ×2 (08:35→21:06)
[2017-10-24] MEDS: INSULIN LISPRO 100 UNITS/ML SUBCUT SCH ×4 (08:36→21:26)
[2017-10-24] MEDS: FUROSEMIDE 40MG/4ML VIAL IVP SCH (08:37)
[2017-10-24 09:08] LABS: CARBON DIOXIDE 36 mEq/L (21-32); CHLORIDE 95 mEq/L (98-107)
[2017-10-24] MEDS ORDERED: WARFARIN SODIUM 10MG TABLET PO NR (18:00)
[2017-10-25] VITALS (12 sets, daily range): BP systolic 102–146; BP diastolic 44–114
[2017-10-25] MEDS: ACETAMINOPHEN 325MG TABLET PO PRN ×2 (00:07→21:54)
[2017-10-25] MEDS: PIPERACILLIN/TAZ 3.375G PREMIX 50 ML IV SCH ×5 (00:08→23:38)
[2017-10-25] MEDS: IPRATROPIUM/ALBUTEROL 0.5-3(2.5)MG/3ML NEB HHN SCH ×6 (00:54→20:18)
[2017-10-25 06:49] LABS: PROTHROMBIN TIME 20.8 sec (9.4-11.6)
[2017-10-25] MEDS: BLOOD SUGAR DIAGNOSTIC STRIP TEST SCH ×4 (08:14→21:00)
[2017-10-25] MEDS: FAMOTIDINE 20MG TABLET PO SCH ×2 (09:11→21:35)
[2017-10-25] MEDS: METOPROLOL TARTRATE 25MG TABLET PO SCH ×2 (09:12→21:00)
[2017-10-25] MEDS: GUAIFENESIN/DM 600MG/30MG ER TAB 12HR PO SCH ×2 (09:12→21:35)
[2017-10-25] MEDS: ZINC SULFATE 220 MG ( 50 ) CAPSULE PO SCH (09:12)
[2017-10-25] MEDS: FUROSEMIDE 40MG/4ML VIAL IVP SCH (09:12)
[2017-10-25] MEDS: DOCUSATE SODIUM 250MG CAPSULE PO SCH (09:12)
[2017-10-25] MEDS: ASPIRIN 325MG TABLET PO SCH (09:12)
[2017-10-25] MEDS: INSULIN LISPRO 100 UNITS/ML SUBCUT SCH ×4 (09:13→21:50)
[2017-10-25] MEDS ORDERED: WARFARIN SODIUM 7.5MG TABLET PO NR (18:00)
[2017-10-26] VITALS (9 sets, daily range): BP systolic 107–137; BP diastolic 60–80
[2017-10-26] MEDS: IPRATROPIUM/ALBUTEROL 0.5-3(2.5)MG/3ML NEB HHN SCH ×6 (00:11→20:40)
[2017-10-26 07:05] LABS: INR 2.8; PROTHROMBIN TIME 28.7 sec (9.4-11.6)
[2017-10-26] MEDS: PIPERACILLIN/TAZ 3.375G PREMIX 50 ML IV SCH ×2 (07:08→17:47)
[2017-10-26] MEDS: BLOOD SUGAR DIAGNOSTIC STRIP TEST SCH ×4 (07:30→21:00)
[2017-10-26] MEDS: ZINC SULFATE 220 MG ( 50 ) CAPSULE PO SCH (08:46)
[2017-10-26] MEDS: GUAIFENESIN/DM 600MG/30MG ER TAB 12HR PO SCH ×2 (08:46→21:13)
[2017-10-26] MEDS: ASPIRIN 325MG TABLET PO SCH (08:46)
[2017-10-26] MEDS: DOCUSATE SODIUM 250MG CAPSULE PO SCH (08:46)
[2017-10-26] MEDS: FUROSEMIDE 40MG/4ML VIAL IVP SCH (08:46)
[2017-10-26] MEDS: FAMOTIDINE 20MG TABLET PO SCH ×2 (08:47→21:13)
[2017-10-26] MEDS: METOPROLOL TARTRATE 25MG TABLET PO SCH ×2 (08:47→21:25)
[2017-10-26] MEDS: INSULIN LISPRO 100 UNITS/ML SUBCUT SCH ×4 (08:51→21:28)
[2017-10-26] MEDS ORDERED: DIATR MEGLU/DIATRIZOATE SOLN 30ML PO SCH (09:00)
[2017-10-26] MEDS ORDERED: DIATR MEGLU/DIATRIZOATE SOLN 120ML ONE (10:03)
[2017-10-26] MEDS ORDERED: WARFARIN SODIUM 2MG TABLET PO NR (18:00)
[2017-10-27] VITALS: BP 116/66
[2017-10-27] MEDS: IPRATROPIUM/ALBUTEROL 0.5-3(2.5)MG/3ML NEB HHN SCH ×6 (00:35→20:17)
[2017-10-27] MEDS: PIPERACILLIN/TAZ 3.375G PREMIX 50 ML IV SCH ×4 (01:12→17:05)
[2017-10-27] MEDS: ACETAMINOPHEN 325MG TABLET PO PRN (01:17)
[2017-10-27 04:00] VITALS: BP 102/52
[2017-10-27] MEDS: BLOOD SUGAR DIAGNOSTIC STRIP TEST SCH ×3 (05:54→21:06)
[2017-10-27] MEDS: INSULIN LISPRO 100 UNITS/ML SUBCUT SCH ×4 (06:24→21:00)
[2017-10-27 06:29] LABS: PROTHROMBIN TIME 31.5 sec (9.4-11.6)
[2017-10-27 07:51] VITALS: BP 90/50
[2017-10-27] MEDS: DOCUSATE SODIUM 250MG CAPSULE PO SCH ×2 (09:00→09:26)
[2017-10-27] MEDS: METOPROLOL TARTRATE 25MG TABLET PO SCH ×2 (09:00→21:05)
[2017-10-27] MEDS: FUROSEMIDE 40MG/4ML VIAL IVP SCH (09:00)
[2017-10-27] MEDS: FAMOTIDINE 20MG TABLET PO SCH ×2 (09:26→21:05)
[2017-10-27] MEDS: ASPIRIN 325MG TABLET PO SCH (09:26)
[2017-10-27] MEDS: ZINC SULFATE 220 MG ( 50 ) CAPSULE PO SCH (09:26)
[2017-10-27] MEDS: GUAIFENESIN/DM 600MG/30MG ER TAB 12HR PO SCH ×2 (09:26→21:05)
[2017-10-27 11:55] VITALS: BP 118/73
[2017-10-27 16:05] VITALS: BP 111/64
[2017-10-27] MEDS ORDERED: WARFARIN SODIUM 2MG TABLET PO SCH (18:00)
[2017-10-27 20:00] VITALS: BP 113/59
[2017-10-27] MEDS ORDERED: ZOLPIDEM TARTRATE 5MG TABLET PO PRN (21:00)
[2017-10-27] MEDS ORDERED: LORAZEPAM 2MG/ML CPJ IV PRN (21:00)
[2017-10-27] MEDS: GABAPENTIN 300MG CAPSULE PO SCH (21:05)
[2017-10-28] VITALS: BP 102/56
[2017-10-28] MEDS: IPRATROPIUM/ALBUTEROL 0.5-3(2.5)MG/3ML NEB HHN SCH ×6 (00:22→21:03)
[2017-10-28] MEDS: PIPERACILLIN/TAZ 3.375G PREMIX 50 ML IV SCH ×4 (02:08→17:53)
[2017-10-28 04:00] VITALS: BP 97/41
[2017-10-28] MEDS: BLOOD SUGAR DIAGNOSTIC STRIP TEST SCH ×4 (07:10→20:58)
[2017-10-28 07:44] VITALS: BP 100/60
[2017-10-28 07:48] LABS: INR 2.8; PROTHROMBIN TIME 28.7 sec (9.4-11.6)
[2017-10-28] MEDS: METOPROLOL TARTRATE 25MG TABLET PO SCH ×2 (09:00→20:56)
[2017-10-28] MEDS: FUROSEMIDE 40MG/4ML VIAL IVP SCH (09:00)
[2017-10-28] MEDS: DOCUSATE SODIUM 250MG CAPSULE PO SCH (09:00)
[2017-10-28] MEDS: ASPIRIN 325MG TABLET PO SCH (09:47)
[2017-10-28] MEDS: GABAPENTIN 300MG CAPSULE PO SCH (09:47)
[2017-10-28] MEDS: FAMOTIDINE 20MG TABLET PO SCH ×2 (09:48→20:57)
[2017-10-28] MEDS: GUAIFENESIN/DM 600MG/30MG ER TAB 12HR PO SCH ×2 (09:48→20:57)
[2017-10-28] MEDS: ZINC SULFATE 220 MG ( 50 ) CAPSULE PO SCH (09:48)
[2017-10-28] MEDS: INSULIN LISPRO 100 UNITS/ML SUBCUT SCH ×4 (09:52→20:58)
[2017-10-28 12:32] VITALS: BP 108/48
[2017-10-28] MEDS: ACETAMINOPHEN 325MG TABLET PO PRN (13:20)
[2017-10-28 16:21] VITALS: BP 107/56
[2017-10-28] MEDS ORDERED: WARFARIN SODIUM 5MG TABLET PO SCH (18:00)
[2017-10-28 20:00] VITALS: BP 94/64
[2017-10-29] VITALS: BP 108/52
[2017-10-29] MEDS: IPRATROPIUM/ALBUTEROL 0.5-3(2.5)MG/3ML NEB HHN SCH ×7 (00:28→23:20)
[2017-10-29] MEDS: PIPERACILLIN/TAZ 3.375G PREMIX 50 ML IV SCH ×4 (01:16→18:15)
[2017-10-29 04:00] VITALS: BP 119/69
[2017-10-29 06:12] LABS: INR 2.5; PROTHROMBIN TIME 25.7 sec (9.4-11.6)
[2017-10-29] MEDS: INSULIN LISPRO 100 UNITS/ML SUBCUT SCH ×4 (06:30→21:50)
[2017-10-29] MEDS: BLOOD SUGAR DIAGNOSTIC STRIP TEST SCH ×4 (06:32→21:00)
[2017-10-29 07:36] VITALS: BP 94/62
[2017-10-29] MEDS: METOPROLOL TARTRATE 25MG TABLET PO SCH ×2 (09:00→21:44)
[2017-10-29] MEDS: ZINC SULFATE 220 MG ( 50 ) CAPSULE PO SCH (09:27)
[2017-10-29] MEDS: DOCUSATE SODIUM 250MG CAPSULE PO SCH (09:27)
[2017-10-29] MEDS: ASPIRIN 325MG TABLET PO SCH (09:27)
[2017-10-29] MEDS: FAMOTIDINE 20MG TABLET PO SCH ×2 (09:27→21:43)
[2017-10-29] MEDS: GABAPENTIN 300MG CAPSULE PO SCH (09:27)
[2017-10-29] MEDS: GUAIFENESIN/DM 600MG/30MG ER TAB 12HR PO SCH ×2 (09:28→21:44)
[2017-10-29] MEDS: FUROSEMIDE 40MG/4ML VIAL IVP SCH (09:28)
[2017-10-29 11:27] VITALS: BP 129/74
[2017-10-29 15:37] VITALS: BP 103/58
[2017-10-29] MEDS ORDERED: WARFARIN SODIUM 5MG TABLET PO NR (18:00)
[2017-10-29 20:00] VITALS: BP 125/79
[2017-10-29] MEDS: ACETAMINOPHEN 325MG TABLET PO PRN (21:44)
[2017-10-30] VITALS: BP 104/57
[2017-10-30] MEDS: PIPERACILLIN/TAZ 3.375G PREMIX 50 ML IV SCH ×2 (00:58→06:32)
[2017-10-30] MEDS: IPRATROPIUM/ALBUTEROL 0.5-3(2.5)MG/3ML NEB HHN SCH ×4 (03:51→20:17)
[2017-10-30 04:00] VITALS: BP 124/76
[2017-10-30] MEDS: BLOOD SUGAR DIAGNOSTIC STRIP TEST SCH ×4 (06:35→20:21)
[2017-10-30] MEDS: INSULIN LISPRO 100 UNITS/ML SUBCUT SCH ×4 (06:37→20:51)
[2017-10-30 07:24] LABS: INR 2.6; PROTHROMBIN TIME 26.5 sec (9.4-11.6)
[2017-10-30 08:00] VITALS: BP 99/58
[2017-10-30] MEDS: FUROSEMIDE 40MG/4ML VIAL IVP SCH (10:10)
[2017-10-30] MEDS: ASPIRIN 325MG TABLET PO SCH (10:11)
[2017-10-30] MEDS: DOCUSATE SODIUM 250MG CAPSULE PO SCH (10:12)
[2017-10-30] MEDS: GUAIFENESIN/DM 600MG/30MG ER TAB 12HR PO SCH ×2 (10:12→20:50)
[2017-10-30] MEDS: ZINC SULFATE 220 MG ( 50 ) CAPSULE PO SCH (10:13)
[2017-10-30] MEDS: FAMOTIDINE 20MG TABLET PO SCH ×2 (10:13→20:50)
[2017-10-30] MEDS: GABAPENTIN 300MG CAPSULE PO SCH (10:13)
[2017-10-30] MEDS: METOPROLOL TARTRATE 25MG TABLET PO SCH ×2 (10:17→20:21)
[2017-10-30 12:00] VITALS: BP 118/72
[2017-10-30 16:00] VITALS: BP 96/67
[2017-10-30] MEDS ORDERED: WARFARIN SODIUM 5MG TABLET PO NR (18:00)
[2017-10-30 20:01] VITALS: BP 107/66
[2017-10-31 00:16] VITALS: BP 115/70
[2017-10-31] MEDS: IPRATROPIUM/ALBUTEROL 0.5-3(2.5)MG/3ML NEB HHN SCH ×6 (00:24→21:15)
[2017-10-31 04:00] VITALS: BP 101/66
[2017-10-31] MEDS: BLOOD SUGAR DIAGNOSTIC STRIP TEST SCH ×4 (06:22→21:00)
[2017-10-31 06:38] LABS: INR 2.4; PROTHROMBIN TIME 25.4 sec (9.4-11.6)
[2017-10-31] MEDS: INSULIN LISPRO 100 UNITS/ML SUBCUT SCH ×4 (06:44→21:39)
[2017-10-31] MEDS: ACETAMINOPHEN 325MG TABLET PO PRN ×2 (06:47→18:07)
[2017-10-31 07:42] VITALS: BP 104/53
[2017-10-31] MEDS: METOPROLOL TARTRATE 25MG TABLET PO SCH ×2 (09:00→20:57)
[2017-10-31] MEDS: GABAPENTIN 300MG CAPSULE PO SCH (09:31)
[2017-10-31] MEDS: FUROSEMIDE 40MG/4ML VIAL IVP SCH (09:31)
[2017-10-31] MEDS: FAMOTIDINE 20MG TABLET PO SCH ×2 (09:31→20:56)
[2017-10-31] MEDS: GUAIFENESIN/DM 600MG/30MG ER TAB 12HR PO SCH ×2 (09:31→20:56)
[2017-10-31] MEDS: ZINC SULFATE 220 MG ( 50 ) CAPSULE PO SCH (09:31)
[2017-10-31] MEDS: DOCUSATE SODIUM 250MG CAPSULE PO SCH (09:31)
[2017-10-31] MEDS: ASPIRIN 325MG TABLET PO SCH (09:47)
[2017-10-31 11:59] VITALS: BP 129/97
[2017-10-31 15:14] LABS: BASOPHILS % 0.6 % (0.0-2.0); EOSINOPHILS % 1.9 % (0.0-5.0); HEMATOCRIT. 33.8 % (36.0-48.0); HEMOGLOBIN. 10.8 g/dL (12.0-16.0); LYMPHOCYTES % 23.4 % (20.0-50.0); MEAN CORPUSCULAR HEMOGLOBIN 26.2 pg (28.0-32.0); MONOCYTES % 10.1 % (2.0-8.0); PLATELET 269 x1000/uL (130-400); RED BLOOD CELL COUNT 4.11 mill/uL (4.2-5.4); RED CELL DISTRIBUTION WIDTH 20.5 % (11.6-14.6)
[2017-10-31 15:40] LABS: CARBON DIOXIDE 34 mEq/L (21-32); CHLORIDE 97 mEq/L (98-107)
[2017-10-31 16:00] VITALS: BP 107/61
[2017-10-31] MEDS ORDERED: POTASSIUM CHLORIDE 20MEQ TABLET SR PO NR (16:45)
[2017-10-31] MEDS ORDERED: WARFARIN SODIUM 5MG TABLET PO NR (18:00)
[2017-10-31] MEDS ORDERED: POTASSIUM CHLORIDE INJ 40 MEQ in DEXT 5% WATER 500 ML IV NR (18:45)
[2017-10-31 19:52] VITALS: BP 103/50
[2017-11-01] VITALS: BP 108/70
[2017-11-01] MEDS: IPRATROPIUM/ALBUTEROL 0.5-3(2.5)MG/3ML NEB HHN SCH ×5 (00:30→16:01)
[2017-11-01 04:00] VITALS: BP 110/80
[2017-11-01] MEDS: ACETAMINOPHEN 325MG TABLET PO PRN (05:14)
[2017-11-01] MEDS: BLOOD SUGAR DIAGNOSTIC STRIP TEST SCH ×3 (06:31→17:10)
[2017-11-01 06:45] LABS: INR 2.7; PROTHROMBIN TIME 28.1 sec (9.4-11.6)
[2017-11-01] MEDS: INSULIN LISPRO 100 UNITS/ML SUBCUT SCH ×3 (06:54→17:40)
[2017-11-01 07:47] VITALS: BP 125/42
[2017-11-01] MEDS: ZINC SULFATE 220 MG ( 50 ) CAPSULE PO SCH (08:53)
[2017-11-01] MEDS: DOCUSATE SODIUM 250MG CAPSULE PO SCH (08:53)
[2017-11-01] MEDS: GUAIFENESIN/DM 600MG/30MG ER TAB 12HR PO SCH (08:53)
[2017-11-01] MEDS: FAMOTIDINE 20MG TABLET PO SCH (08:53)
[2017-11-01] MEDS: GABAPENTIN 300MG CAPSULE PO SCH (08:53)
[2017-11-01] MEDS: METOPROLOL TARTRATE 25MG TABLET PO SCH (08:54)
[2017-11-01] MEDS: ASPIRIN 325MG TABLET PO SCH (08:54)
[2017-11-01] MEDS: FUROSEMIDE 40MG/4ML VIAL IVP SCH (09:00)
[2017-11-01] MEDS ORDERED: POTASSIUM CHLORIDE 20MEQ/PACKET PO SCH (09:30)
[2017-11-01] MEDS ORDERED: SODIUM BICARBONATE 4% (2.4MEQ) 5ML VIAL IV ONE (10:34)
[2017-11-01] MEDS ORDERED: LIDOCAINE HCL 1% 20ML VIAL (Pyxis) INJ ONE (10:34)
[2017-11-01 11:44] LABS: CARBON DIOXIDE 34 mEq/L (21-32); CHLORIDE 100 mEq/L (98-107)
[2017-11-01 12:00] VITALS: BP 138/80
[2017-11-01 16:00] VITALS: BP 137/86
[2017-11-01 16:55] VITALS: BP 129/76
[2017-11-01] MEDS ORDERED: INFLUENZA VIRUS VACCINE 0.5ML SYR IM ONE (17:30)
[2017-11-01] MEDS ORDERED: WARFARIN SODIUM 5MG TABLET PO SCH (18:00)
== END 2017-11-01 19:20 | DRG 720 ==
LOC: ER 14:23 → 5EST 18:31 → EDBEDREQ 18:34 → CANRESERV 19:00 → ENRESERV 19:00 → EDBEDREQSVC 19:17 → EDBEDREQ 19:17 → ENRESERV 21:12 → 8WST 10-26 12:04
PROVIDERS: ADMIT Internal Medicine; ATTEND Internal Medicine
PROC: 5A09457 Assistance with Respiratory Ventilation, 24-96 Consecutive Hours, Continuous Positive Airway Pressure (ICD-10-PCS; 2017-10-08)
PROC: 5A09357 Assistance with Respiratory Ventilation, Less than 24 Consecutive Hours, Continuous Positive Airway Pressure (ICD-10-PCS; 2017-10-11)
PROC: 5A09357 Assistance with Respiratory Ventilation, Less than 24 Consecutive Hours, Continuous Positive Airway Pressure (ICD-10-PCS; 2017-10-13)
PROC: B5181ZA Fluoroscopy of Superior Vena Cava using Low Osmolar Contrast, Guidance (ICD-10-PCS; principal; 2017-10-14)
PROC: 02HV33Z Insertion of Infusion Device into Superior Vena Cava, Percutaneous Approach (ICD-10-PCS; 2017-10-14)
PROC: B548ZZA Ultrasonography of Superior Vena Cava, Guidance (ICD-10-PCS; 2017-10-14)
PROC: 0W9J30Z Drainage of Pelvic Cavity with Drainage Device, Percutaneous Approach (ICD-10-PCS; 2017-10-18)
DX: A41.51 Sepsis due to Escherichia coli [E. coli] (principal); J96.22 Acute and chronic respiratory failure with hypercapnia; E43 Unspecified severe protein-calorie malnutrition; G93.40 Encephalopathy, unspecified; G93.41 Metabolic encephalopathy; B37.0 Candidal stomatitis; D68.9 Coagulation defect, unspecified; I42.9 Cardiomyopathy, unspecified; R13.10 Dysphagia, unspecified; N73.0 Acute parametritis and pelvic cellulitis; I11.0 Hypertensive heart disease with heart failure; D50.9 Iron deficiency anemia, unspecified; I50.42 Chronic combined systolic (congestive) and diastolic (congestive) heart failure; E11.9 Type 2 diabetes mellitus without complications; E86.0 Dehydration; D25.9 Leiomyoma of uterus, unspecified; M47.9 Spondylosis, unspecified; E78.00 Pure hypercholesterolemia, unspecified; E78.5 Hyperlipidemia, unspecified; I48.91 Unspecified atrial fibrillation; J98.11 Atelectasis; K21.9 Gastro-esophageal reflux disease without esophagitis; K52.9 Noninfective gastroenteritis and colitis, unspecified; K59.00 Constipation, unspecified; M43.10 Spondylolisthesis, site unspecified; M51.37 Other intervertebral disc degeneration, lumbosacral region; M19.90 Unspecified osteoarthritis, unspecified site; R26.9 Unspecified abnormalities of gait and mobility; M85.80 Other specified disorders of bone density and structure, unspecified site; N73.9 Female pelvic inflammatory disease, unspecified; N83.9 Noninflammatory disorder of ovary, fallopian tube and broad ligament, unspecified; T45.515A Adverse effect of anticoagulants, initial encounter; Y92.89 Other specified places as the place of occurrence of the external cause; Z79.01 Long term (current) use of anticoagulants; Z79.4 Long term (current) use of insulin; Z90.49 Acquired absence of other specified parts of digestive tract; I69.351 Hemiplegia and hemiparesis following cerebral infarction affecting right dominant side; Z88.8 Allergy status to other drugs, medicaments and biological substances; Z68.34 Body mass index [BMI] 34.0-34.9, adult; Z88.5 Allergy status to narcotic agent
CPT/HCPCS: 36415; 36569; 36600; 47537; 49180; 70450; 70544; 70551; 71010; 71275; 72100; 73522; 74176; 74177; 76856; 76937; 77012; 80048; 80053; 80061; 80305; 81001; 82010; 82140; 82270; 82375; 82550; 82553; 82607; 82746; 82805; 82962; 83036; 83605; 83735; 83880; 84439; 84443; 84481; 84484; 85025; 85379; 85610; 85730; 86304; 87040; 87070; 87075; 87076; 87077; 87086; 87106; 87186; 87205; 87804; 90686; 92610; 93005; 93306; 93880; 93970; 94640; 94660; 96374; 97110; 97116; 97163; 97167; 97530; 97535; 99285; A6261; C1725; C1729; C1769; C1893; C9113; G0482; J0696; J1650; J1815; J1940; J1956; J2405; J2543; J2930; J3010; J3430; J3480; J3490; J7030; J7040; J7050; J7060; J7512; J7620; L8514; Q9963; Q9967; A4315

== ENCOUNTER 2018-10-31 11:12 | Inpatient (IN) | payer MEDICAID ==
[~2018-10-31] VITALS: Ht 154.9 cm; Wt 86.4 kg
[~2018-10-31 11:12] MED LIST changes: +CALC-3 PO; +COR12 PO; +FISH PO; +GABA-531 PO; +GLIM2TAB2 PO; -GLUCOTROL; -HCTZ; +LIP40 PO; +LOSA50TA20 PO; -METFORMIN; +MULT-1078 PO; +OMEP20TA15 PO; -QUINIPRIL; +RANI150C12 PO
[2018-10-31] MEDS ORDERED: DILTIAZEM HCL 5MG/ML 5ML VIAL IV ONE (11:30)
[2018-10-31] MEDS ORDERED: ASPIRIN 81MG TABLET PO ONE (11:30)
[2018-10-31 12:14] LABS: BASOPHILS % 0.4 % (0.0-2.0); EOSINOPHILS % 0.5 % (0.0-5.0); HEMATOCRIT. 33.4 % (36.0-48.0); HEMOGLOBIN. 10.5 g/dL (12.0-16.0); LYMPHOCYTES % 12.3 % (20.0-50.0); MEAN CORPUSCULAR HEMOGLOBIN 25.5 pg (28.0-32.0); MEAN CORPUSCULAR VOLUME 81.3 fL (81.0-99.0); MEAN PLATELET VOLUME 8.2 fl (7.4-10.4); MONOCYTES % 14.1 % (2.0-8.0); NEUTROPHILS % 72.7 % (40.0-76.0); PLATELET 236 x1000/uL (130-400); RED BLOOD CELL COUNT 4.11 mill/uL (4.2-5.4)
[2018-10-31 12:19] LABS: CHLORIDE 103 mEq/L (98-107)
[2018-10-31] MEDS: DILTIAZEM HCL 125 MG in DEXT 5% WATER 100 ML IV ONE ×2 (12:26→13:29)
[2018-10-31] MEDS ORDERED: DEXTROSE 50% WATER 50ML SYRINGE IV PRN (13:45)
[2018-10-31] MEDS ORDERED: AMLODIPINE 5MG TABLET PO SCH (21:00)
[2018-10-31] MEDS ORDERED: ATORVASTATIN CALCIUM 40MG TABLET PO SCH (21:00)
[2018-10-31] MEDS ORDERED: DILTIAZEM HCL 60MG TABLET PO SCH (22:00)
[2018-11-01] VITALS (11 sets, daily range): BP systolic 109–140; BP diastolic 41–82
[2018-11-01] MEDS ORDERED: DILTIAZEM HCL 125 MG in DEXT 5% WATER 100 ML IV SCH ×5 (02:00→14:30)
[2018-11-01] MEDS: OMEPRAZOLE 20MG CAPSULE EXTENDED RELEASE PO SCH (06:00)
[2018-11-01] MEDS: BLOOD SUGAR DIAGNOSTIC STRIP TEST SCH ×4 (06:01→21:00)
[2018-11-01] MEDS: INSULIN LISPRO 100 UNITS/ML SUBCUT SCH ×4 (06:01→23:26)
[2018-11-01 06:42] LABS: HEMATOCRIT. 29.8 % (36.0-48.0); HEMOGLOBIN. 9.7 g/dL (12.0-16.0); MEAN CORPUSCULAR VOLUME 80.1 fL (81.0-99.0); MEAN PLATELET VOLUME 7.9 fl (7.4-10.4); PLATELET 220 x1000/uL (130-400); RED BLOOD CELL COUNT 3.72 mill/uL (4.2-5.4); RED CELL DISTRIBUTION WIDTH 17.3 % (11.6-14.6)
[2018-11-01 06:43] LABS: INR 1.2
[2018-11-01 06:57] LABS: CHLORIDE 104 mEq/L (98-107)
[2018-11-01 07:00] LABS: CLARITY URINE CLOUDY (CLEAR); COLOR URINE DARK YELLOW (YELLOW); KETONES URINE NEGATIVE (NEGATIVE); LEUKOCYTE ESTERASE URINE 2+ (NEGATIVE); NITRITE URINE NEGATIVE (NEGATIVE); OCCULT BLOOD URINE 1+ (NEGATIVE); PH URINE 5.5 (4.5-8.0); PROTEIN URINE 1+ (NEGATIVE); SPECIFIC GRAVITY URINE 1.024 (1.005-1.030)
[2018-11-01 08:02] LABS: *AMPHETAMINES SCREEN URINE NEGATIVE (NEGATIVE); *BARBITURATES SCREEN URINE NEGATIVE (NEGATIVE); *BENZODIAZEPINES SCREEN URINE NEGATIVE (NEGATIVE)
[2018-11-01 08:03] LABS: *COCAINE SCREEN URINE NEGATIVE (NEGATIVE); CANNABINOID URINE SCREEN NEGATIVE (NEGATIVE); METHADONE URINE SCREEN NEGATIVE (NEGATIVE); OPIATES URINE SCREEN NEGATIVE (NEGATIVE); PHENCYCLIDINE URINE SCREEN NEGATIVE (NEGATIVE)
[2018-11-01] MEDS: POTASSIUM CHLORIDE 20MEQ/PACKET PO SCH (09:12)
[2018-11-01] MEDS: ENOXAPARIN 80MG/0.8ML SYR SUBCUT SCH (10:03)
[2018-11-01 12:42] LABS: PLATELET ESTIMATE NORMAL
[2018-11-01] MEDS: DILTIAZEM HCL 30MG TABLET PO SCH ×2 (14:21→20:39)
[2018-11-01] MEDS ORDERED: CEFTRIAXONE 1 G PREMIX 50 ML IV SCH ×2 (15:00)
[2018-11-01] MEDS: CEFTRIAXONE 1 G PREMIX 50 ML IV SCH (15:28)
[2018-11-01] MEDS: WARFARIN SODIUM 7.5MG TABLET PO SCH (17:43)
[2018-11-01] MEDS: ACETAMINOPHEN 325MG TABLET PO PRN (18:26)
[2018-11-01] MEDS: ATORVASTATIN CALCIUM 40MG TABLET PO SCH (20:38)
[2018-11-02] VITALS (13 sets, daily range): BP systolic 108–167; BP diastolic 61–134
[2018-11-02] MEDS: ACETAMINOPHEN 325MG TABLET PO PRN (01:47)
[2018-11-02] MEDS: OMEPRAZOLE 20MG CAPSULE EXTENDED RELEASE PO SCH (06:20)
[2018-11-02] MEDS: DILTIAZEM HCL 30MG TABLET PO SCH (06:20)
[2018-11-02] MEDS: BLOOD SUGAR DIAGNOSTIC STRIP TEST SCH ×4 (06:30→20:45)
[2018-11-02 06:47] LABS: HEMOGLOBIN. 9.9 g/dL (12.0-16.0); MEAN CORPUSCULAR HEMOGLOBIN 25.8 pg (28.0-32.0); MEAN CORPUSCULAR VOLUME 80.6 fL (81.0-99.0); MEAN PLATELET VOLUME 8.2 fl (7.4-10.4); PLATELET 248 x1000/uL (130-400); RED BLOOD CELL COUNT 3.84 mill/uL (4.2-5.4); RED CELL DISTRIBUTION WIDTH 17.7 % (11.6-14.6)
[2018-11-02 06:51] LABS: INR 1.1; PROTHROMBIN TIME 11.4 sec (9.1-11.1)
[2018-11-02 07:08] LABS: CHLORIDE 105 mEq/L (98-107)
[2018-11-02] MEDS: ENOXAPARIN 80MG/0.8ML SYR SUBCUT SCH (08:12)
[2018-11-02] MEDS: INSULIN LISPRO 100 UNITS/ML SUBCUT SCH ×4 (08:12→20:45)
[2018-11-02] MEDS: POTASSIUM CHLORIDE 20MEQ/PACKET PO SCH (08:13)
[2018-11-02] MEDS ORDERED: IPRATROPIUM/ALBUTEROL 0.5-3(2.5)MG/3ML NEB HHN PRN (09:15)
[2018-11-02] MEDS: LORAZEPAM 2MG/ML CPJ IV PRN (09:39)
[2018-11-02 09:42] LABS: PLATELET ESTIMATE NORMAL
[2018-11-02] MEDS: DILTIAZEM HCL 60MG TABLET PO SCH ×2 (14:25→21:07)
[2018-11-02] MEDS: CEFTRIAXONE 1 G PREMIX 50 ML IV SCH (14:25)
[2018-11-02] MEDS: WARFARIN SODIUM 7.5MG TABLET PO SCH (17:10)
[2018-11-02] MEDS: ATORVASTATIN CALCIUM 40MG TABLET PO SCH (20:42)
[2018-11-03] VITALS (12 sets, daily range): BP systolic 118–149; BP diastolic 66–92
[2018-11-03] MEDS: DILTIAZEM HCL 60MG TABLET PO SCH ×3 (05:32→22:03)
[2018-11-03] MEDS: LORAZEPAM 2MG/ML CPJ IV PRN ×2 (05:40→16:13)
[2018-11-03] MEDS: BLOOD SUGAR DIAGNOSTIC STRIP TEST SCH ×4 (06:12→21:00)
[2018-11-03 06:59] LABS: INR 1.3; PROTHROMBIN TIME 13.5 sec (9.1-11.1)
[2018-11-03 07:00] LABS: BASOPHILS % 0.5 % (0.0-2.0); HEMATOCRIT. 31.2 % (36.0-48.0); HEMOGLOBIN. 9.9 g/dL (12.0-16.0); LYMPHOCYTES % 12.7 % (20.0-50.0); MEAN CORPUSCULAR HEMOGLOBIN 25.6 pg (28.0-32.0); MEAN CORPUSCULAR VOLUME 80.8 fL (81.0-99.0); MEAN PLATELET VOLUME 8.1 fl (7.4-10.4); NEUTROPHILS % 76.8 % (40.0-76.0); PLATELET 263 x1000/uL (130-400); RED BLOOD CELL COUNT 3.86 mill/uL (4.2-5.4); RED CELL DISTRIBUTION WIDTH 17.9 % (11.6-14.6)
[2018-11-03 07:12] LABS: CHLORIDE 103 mEq/L (98-107)
[2018-11-03] MEDS: ENOXAPARIN 80MG/0.8ML SYR SUBCUT SCH (08:24)
[2018-11-03] MEDS: FAMOTIDINE 20MG TABLET PO SCH ×2 (08:24→22:02)
[2018-11-03] MEDS: INSULIN LISPRO 100 UNITS/ML SUBCUT SCH ×4 (08:24→22:03)
[2018-11-03] MEDS: POTASSIUM CHLORIDE 20MEQ/PACKET PO SCH (08:24)
[2018-11-03] MEDS: CEFTRIAXONE 1 G PREMIX 50 ML IV SCH (14:05)
[2018-11-03] MEDS: WARFARIN SODIUM 7.5MG TABLET PO SCH (17:15)
[2018-11-03] MEDS: ATORVASTATIN CALCIUM 40MG TABLET PO SCH (22:02)
[2018-11-03] MEDS: ACETAMINOPHEN 325MG TABLET PO PRN (22:02)
[2018-11-04] VITALS (45 sets, daily range): BP systolic 68–181; BP diastolic 23–120
[2018-11-04] MEDS: LORAZEPAM 2MG/ML CPJ IV PRN (01:58)
[2018-11-04] MEDS: ACETAMINOPHEN 325MG TABLET PO PRN (01:58)
[2018-11-04] MEDS: BLOOD SUGAR DIAGNOSTIC STRIP TEST SCH ×3 (05:47→17:02)
[2018-11-04] MEDS: DILTIAZEM HCL 60MG TABLET PO SCH ×3 (05:47→21:27)
[2018-11-04 07:11] LABS: BASOPHILS % 0.9 % (0.0-2.0); EOSINOPHILS % 1.2 % (0.0-5.0); HEMATOCRIT. 32.2 % (36.0-48.0); HEMOGLOBIN. 10.2 g/dL (12.0-16.0); LYMPHOCYTES % 18.1 % (20.0-50.0); MEAN CORPUSCULAR HEMOGLOBIN 25.9 pg (28.0-32.0); MEAN CORPUSCULAR VOLUME 82.1 fL (81.0-99.0); MEAN PLATELET VOLUME 7.8 fl (7.4-10.4); MONOCYTES % 10.1 % (2.0-8.0); NEUTROPHILS % 69.7 % (40.0-76.0); PLATELET 260 x1000/uL (130-400); RED BLOOD CELL COUNT 3.92 mill/uL (4.2-5.4); RED CELL DISTRIBUTION WIDTH 18.1 % (11.6-14.6)
[2018-11-04 07:15] LABS: INR 1.9; PROTHROMBIN TIME 18.7 sec (9.1-11.1)
[2018-11-04 07:16] LABS: CHLORIDE 103 mEq/L (98-107)
[2018-11-04] MEDS: FAMOTIDINE 20MG TABLET PO SCH (08:13)
[2018-11-04] MEDS: POTASSIUM CHLORIDE 20MEQ/PACKET PO SCH (08:13)
[2018-11-04] MEDS: INSULIN LISPRO 100 UNITS/ML SUBCUT SCH ×3 (08:21→17:21)
[2018-11-04 09:00] LABS: BG BASE EXCESS 10.6 mmol/L (-2.0-2.0); BG CARBOXYHEMOGLOBIN 0.6 % (0.5-1.5); BG DEOXYHEMOGLOBIN 1.1 % (0.0-5.0); BG FRACTION INSPIRED OXYGEN 100; BG HCO3 ACT 40.3 mmol/L (22.0-26.0); BG METHEMOGLOBIN 0.3 % (0.0-1.5); BG OXYGEN SATURATION 98.9 % (92.0-98.5); BG PCO2 89.8 mmHg (35.0-45.0); BG PO2 336.8 mmHg (75.0-100.0); BG SAMPLE SITE RIGHT RADIAL; BG TOTAL HEMOGLOBIN 10.8 g/dL (12.0-18.0); BG VENT MODE MASK - NRB
[2018-11-04] MEDS ORDERED: VANCOMYCIN 1500MG in DEXTROSE 5% WATER 250ML IV SCH (09:30)
[2018-11-04] MEDS ORDERED: FUROSEMIDE 40MG/4ML VIAL IVP SCH ×2 (09:30→12:30)
[2018-11-04 10:22] LABS: BG BASE EXCESS 9.6 mmol/L (-2.0-2.0); BG CARBOXYHEMOGLOBIN 0.7 % (0.5-1.5); BG DEOXYHEMOGLOBIN 1.8 % (0.0-5.0); BG FRACTION INSPIRED OXYGEN 50; BG HCO3 ACT 33.4 mmol/L (22.0-26.0); BG METHEMOGLOBIN 0.3 % (0.0-1.5); BG OXYGEN SATURATION 98.2 % (92.0-98.5); BG OXYHEMOGLOBIN 97.2 % (94.0-97.0); BG PCO2 42.1 mmHg (35.0-45.0); BG PH 7.517 (7.350-7.450); BG SAMPLE SITE RIGHT RADIAL; BG TIDAL VOLUME(mL) 500 mL; BG TOTAL HEMOGLOBIN 11.8 g/dL (12.0-18.0); BG VENT MODE VENT - A/C; BG VENT RATE 18 set
[2018-11-04] MEDS: IPRATROPIUM/ALBUTEROL 0.5-3(2.5)MG/3ML NEB HHN SCH ×3 (11:18→20:18)
[2018-11-04] MEDS: PROPOFOL 10MG/ML 100ML 100 ML IV PRN ×2 (12:14→17:01)
[2018-11-04] MEDS: CEFTRIAXONE 1 G PREMIX 50 ML IV SCH (13:52)
[2018-11-04] MEDS ORDERED: VECURONIUM BROMIDE 10 MG/VIAL IV ONE (15:08)
[2018-11-04] MEDS ORDERED: ETOMIDATE 2MG/ML 10ML VIAL IV ONE (15:08)
[2018-11-04] MEDS ORDERED: ATROPINE SULFATE 1MG/10ML SYR ONE (15:08)
[2018-11-04] MEDS ORDERED: SODIUM CHLORIDE 0.9% 10ML VIAL ONE (15:08)
[2018-11-04] MEDS: WARFARIN SODIUM 7.5MG TABLET PO SCH (17:19)
[2018-11-04] MEDS: ATORVASTATIN CALCIUM 40MG TABLET PO SCH (21:27)
[2018-11-05] VITALS (48 sets, daily range): BP systolic 99–148; BP diastolic 53–83
[2018-11-05] MEDS: BLOOD SUGAR DIAGNOSTIC STRIP TEST SCH ×4 (00:08→17:33)
[2018-11-05] MEDS: IPRATROPIUM/ALBUTEROL 0.5-3(2.5)MG/3ML NEB HHN SCH ×6 (00:11→20:28)
[2018-11-05] MEDS: PROPOFOL 10MG/ML 100ML 100 ML IV PRN ×3 (01:20→18:45)
[2018-11-05] MEDS: DILTIAZEM HCL 60MG TABLET PO SCH ×3 (05:18→21:22)
[2018-11-05] MEDS: INSULIN LISPRO 100 UNITS/ML SUBCUT SCH ×4 (05:20→17:41)
[2018-11-05 06:15] LABS: BASOPHILS % 0.6 % (0.0-2.0); EOSINOPHILS % 0.8 % (0.0-5.0); HEMATOCRIT. 32.3 % (36.0-48.0); HEMOGLOBIN. 10.3 g/dL (12.0-16.0); LYMPHOCYTES % 22.2 % (20.0-50.0); MEAN CORPUSCULAR HEMOGLOBIN 25.5 pg (28.0-32.0); MEAN PLATELET VOLUME 8.2 fl (7.4-10.4); MONOCYTES % 10.1 % (2.0-8.0); NEUTROPHILS % 66.3 % (40.0-76.0); PLATELET 274 x1000/uL (130-400); RED BLOOD CELL COUNT 4.03 mill/uL (4.2-5.4)
[2018-11-05 06:18] LABS: INR 2.3; PROTHROMBIN TIME 22.8 sec (9.1-11.1)
[2018-11-05 06:34] LABS: CHLORIDE 98 mEq/L (98-107)
[2018-11-05 08:47] LABS: BG BASE EXCESS 13.8 mmol/L (-2.0-2.0); BG CARBOXYHEMOGLOBIN 0.5 % (0.5-1.5); BG DEOXYHEMOGLOBIN 1.6 % (0.0-5.0); BG FRACTION INSPIRED OXYGEN 40; BG HCO3 ACT 37.4 mmol/L (22.0-26.0); BG METHEMOGLOBIN 0.3 % (0.0-1.5); BG OXYGEN SATURATION 98.4 % (92.0-98.5); BG OXYHEMOGLOBIN 97.6 % (94.0-97.0); BG PCO2 42.8 mmHg (35.0-45.0); BG PH 7.559 (7.350-7.450); BG PO2 140.4 mmHg (75.0-100.0); BG SAMPLE SITE RIGHT RADIAL; BG TIDAL VOLUME(mL) 500 mL; BG TOTAL HEMOGLOBIN 10.4 g/dL (12.0-18.0); BG VENT MODE VENT - A/C; BG VENT RATE 14 set
[2018-11-05] MEDS ORDERED: FAMOTIDINE 20MG TABLET PO SCH (09:00)
[2018-11-05] MEDS: POTASSIUM CHLORIDE 20MEQ/PACKET PO SCH (09:06)
[2018-11-05] MEDS: VANCOMYCIN 1 G PREMIX 200 ML IV SCH (09:37)
[2018-11-05] MEDS ORDERED: PANTOPRAZOLE SODIUM 40 MG/VIAL IV NR (10:00)
[2018-11-05] MEDS ORDERED: FURO40TA5 PO (12:26)
[2018-11-05] MEDS: NYSTATIN POWDER 15GM TOP SCH ×2 (14:17→17:39)
[2018-11-05] MEDS: LEVOFLOXACIN 500MG PREMIX 100 ML IV SCH (14:17)
[2018-11-05] MEDS: WARFARIN SODIUM 5MG TABLET PO SCH (17:40)
[2018-11-05] MEDS: ATORVASTATIN CALCIUM 40MG TABLET PO SCH (21:21)
[2018-11-06] VITALS (47 sets, daily range): BP systolic 93–136; BP diastolic 53–81
[2018-11-06] MEDS: BLOOD SUGAR DIAGNOSTIC STRIP TEST SCH ×5 (00:14→23:11)
[2018-11-06] MEDS: INSULIN LISPRO 100 UNITS/ML SUBCUT SCH ×5 (00:18→23:17)
[2018-11-06] MEDS: IPRATROPIUM/ALBUTEROL 0.5-3(2.5)MG/3ML NEB HHN SCH ×6 (00:31→20:03)
[2018-11-06] MEDS: PROPOFOL 10MG/ML 100ML 100 ML IV PRN ×5 (00:58→23:17)
[2018-11-06] MEDS: DILTIAZEM HCL 60MG TABLET PO SCH ×3 (05:23→20:48)
[2018-11-06 05:29] LABS: INR 2.7; PROTHROMBIN TIME 26.7 sec (9.1-11.1)
[2018-11-06 05:31] LABS: CHLORIDE 101 mEq/L (98-107)
[2018-11-06 05:43] LABS: EOSINOPHILS % 2.7 % (0.0-5.0); HEMATOCRIT. 31.9 % (36.0-48.0); LYMPHOCYTES % 19.4 % (20.0-50.0); MEAN CORPUSCULAR HEMOGLOBIN 25.2 pg (28.0-32.0); MEAN CORPUSCULAR VOLUME 80.3 fL (81.0-99.0); MEAN PLATELET VOLUME 7.9 fl (7.4-10.4); MONOCYTES % 10.6 % (2.0-8.0); NEUTROPHILS % 66.3 % (40.0-76.0); PLATELET 259 x1000/uL (130-400); RED BLOOD CELL COUNT 3.98 mill/uL (4.2-5.4); RED CELL DISTRIBUTION WIDTH 18.2 % (11.6-14.6)
[2018-11-06 07:34] LABS: BG CARBOXYHEMOGLOBIN 0.8 % (0.5-1.5); BG FRACTION INSPIRED OXYGEN 40; BG HCO3 ACT 35.2 mmol/L (22.0-26.0); BG METHEMOGLOBIN 0.3 % (0.0-1.5); BG OXYHEMOGLOBIN 96.9 % (94.0-97.0); BG PCO2 44.8 mmHg (35.0-45.0); BG PH 7.513 (7.350-7.450); BG PO2 140.5 mmHg (75.0-100.0); BG SAMPLE SITE RIGHT RADIAL; BG TIDAL VOLUME(mL) 500 mL; BG TOTAL HEMOGLOBIN 10.7 g/dL (12.0-18.0); BG VENT MODE VENT - A/C; BG VENT RATE 10 set
[2018-11-06] MEDS: PANTOPRAZOLE SODIUM 40 MG/VIAL IV SCH (08:28)
[2018-11-06] MEDS: POTASSIUM CHLORIDE 20MEQ/PACKET PO SCH (08:28)
[2018-11-06] MEDS: VANCOMYCIN 1 G PREMIX 200 ML IV SCH (08:29)
[2018-11-06] MEDS: NYSTATIN POWDER 15GM TOP SCH ×3 (08:30→17:42)
[2018-11-06] MEDS ORDERED: FUROSEMIDE 40MG/4ML VIAL IVP NR (09:45)
[2018-11-06] MEDS ORDERED: POTASSIUM CHLORIDE 20MEQ/PACKET PO NR (09:45)
[2018-11-06] MEDS: METHYLPREDNISOLONE SOD SUCC 40 MG/ML VIAL IV SCH ×2 (11:39→17:42)
[2018-11-06] MEDS: LEVOFLOXACIN 500MG PREMIX 100 ML IV SCH (11:57)
[2018-11-06] MEDS ORDERED: VECURONIUM BROMIDE 10 MG/VIAL IV ONE (15:08)
[2018-11-06] MEDS ORDERED: SODIUM CHLORIDE 0.9% 10ML VIAL ONE (15:08)
[2018-11-06] MEDS: WARFARIN SODIUM 5MG TABLET PO SCH (17:42)
[2018-11-06] MEDS: CEPHALEXIN 250 MG/5 ML 100ML PO SCH (20:48)
[2018-11-06] MEDS: ATORVASTATIN CALCIUM 40MG TABLET PO SCH (20:48)
[2018-11-06] MEDS: CLINDAMYCIN 75 MG/5 ML PO SCH (20:51)
[2018-11-06] MEDS ORDERED: CLINDAMYCIN HCL 150MG CAPSULE PO SCH (22:00)
[2018-11-07] VITALS (37 sets, daily range): BP systolic 88–121; BP diastolic 47–71
[2018-11-07] MEDS: IPRATROPIUM/ALBUTEROL 0.5-3(2.5)MG/3ML NEB HHN SCH ×6 (00:12→20:08)
[2018-11-07] MEDS: METHYLPREDNISOLONE SOD SUCC 40 MG/ML VIAL IV SCH ×3 (01:28→17:37)
[2018-11-07] MEDS: PROPOFOL 10MG/ML 100ML 100 ML IV PRN ×2 (03:34→08:35)
[2018-11-07] MEDS: DILTIAZEM HCL 60MG TABLET PO SCH ×3 (05:13→21:13)
[2018-11-07] MEDS: BLOOD SUGAR DIAGNOSTIC STRIP TEST SCH ×4 (05:13→23:42)
[2018-11-07] MEDS: CLINDAMYCIN 75 MG/5 ML PO SCH ×3 (05:21→21:13)
[2018-11-07] MEDS: INSULIN LISPRO 100 UNITS/ML SUBCUT SCH ×4 (05:22→23:43)
[2018-11-07] MEDS: CEPHALEXIN 250 MG/5 ML 100ML PO SCH ×3 (05:22→21:14)
[2018-11-07 05:33] LABS: CHLORIDE 101 mEq/L (98-107)
[2018-11-07 05:35] LABS: INR 3.8; PROTHROMBIN TIME 37.5 sec (9.1-11.1)
[2018-11-07 06:08] LABS: HEMATOCRIT. 32.1 % (36.0-48.0); HEMOGLOBIN. 10.1 g/dL (12.0-16.0); MEAN CORPUSCULAR HEMOGLOBIN 25.3 pg (28.0-32.0); MEAN CORPUSCULAR VOLUME 80.1 fL (81.0-99.0); MEAN PLATELET VOLUME 8.1 fl (7.4-10.4); PLATELET 279 x1000/uL (130-400); RED CELL DISTRIBUTION WIDTH 18.3 % (11.6-14.6)
[2018-11-07] MEDS ORDERED: FUROSEMIDE 40MG/4ML VIAL IVP NR (08:15)
[2018-11-07] MEDS: POTASSIUM CHLORIDE 20MEQ/PACKET PO SCH (08:35)
[2018-11-07] MEDS: PANTOPRAZOLE SODIUM 40 MG/VIAL IV SCH (08:35)
[2018-11-07] MEDS: NYSTATIN POWDER 15GM TOP SCH ×3 (08:35→17:37)
[2018-11-07 09:42] LABS: BG CARBOXYHEMOGLOBIN 0.2 % (0.5-1.5); BG DEOXYHEMOGLOBIN 1.8 % (0.0-5.0); BG FRACTION INSPIRED OXYGEN 40; BG HCO3 ACT 32.2 mmol/L (22.0-26.0); BG METHEMOGLOBIN 0.3 % (0.0-1.5); BG OXYGEN SATURATION 98.2 % (92.0-98.5); BG OXYHEMOGLOBIN 97.7 % (94.0-97.0); BG PCO2 43.4 mmHg (35.0-45.0); BG PH 7.488 (7.350-7.450); BG PO2 144.1 mmHg (75.0-100.0); BG SAMPLE SITE RIGHT BRACHIAL; BG TIDAL VOLUME(mL) 550 mL; BG TOTAL HEMOGLOBIN 10.1 g/dL (12.0-18.0); BG VENT MODE VENT - A/C; BG VENT RATE 10 set
[2018-11-07] MEDS ORDERED: INSULIN GLARGINE UD 100 UNITS/ML SYR SUBCUT SCH (10:00)
[2018-11-07 10:28] LABS: PLATELET ESTIMATE NORMAL
[2018-11-07] MEDS ORDERED: LORAZEPAM 2MG/ML CPJ IV PRN ×3 (11:15→14:15)
[2018-11-07] MEDS: ACETAMINOPHEN 325MG TABLET PO PRN (18:17)
[2018-11-07] MEDS: ATORVASTATIN CALCIUM 40MG TABLET PO SCH (21:13)
[2018-11-07] MEDS: INSULIN GLARGINE UD 100 UNITS/ML SYR SUBCUT SCH (22:52)
[2018-11-08] VITALS (41 sets, daily range): BP systolic 91–139; BP diastolic 45–98
[2018-11-08] MEDS ORDERED: INSULIN LISPRO 100 UNITS/ML SUBCUT SCH
[2018-11-08] MEDS: IPRATROPIUM/ALBUTEROL 0.5-3(2.5)MG/3ML NEB HHN SCH ×3 (00:12→07:53)
[2018-11-08] MEDS: METHYLPREDNISOLONE SOD SUCC 40 MG/ML VIAL IV SCH ×2 (01:39→09:50)
[2018-11-08] MEDS: BLOOD SUGAR DIAGNOSTIC STRIP TEST SCH ×3 (05:05→17:34)
[2018-11-08] MEDS: DILTIAZEM HCL 60MG TABLET PO SCH (05:08)
[2018-11-08] MEDS: CLINDAMYCIN 75 MG/5 ML PO SCH ×3 (05:09→21:39)
[2018-11-08] MEDS: CEPHALEXIN 250 MG/5 ML 100ML PO SCH ×3 (05:09→21:39)
[2018-11-08] MEDS: INSULIN LISPRO 100 UNITS/ML SUBCUT SCH ×3 (05:10→17:41)
[2018-11-08 05:36] LABS: CHLORIDE 104 mEq/L (98-107); HEMATOCRIT. 31.7 % (36.0-48.0); MEAN CORPUSCULAR HEMOGLOBIN 24.9 pg (28.0-32.0); MEAN CORPUSCULAR VOLUME 78.8 fL (81.0-99.0); MEAN PLATELET VOLUME 8.3 fl (7.4-10.4); PLATELET 314 x1000/uL (130-400); RED BLOOD CELL COUNT 4.03 mill/uL (4.2-5.4); RED CELL DISTRIBUTION WIDTH 18.3 % (11.6-14.6)
[2018-11-08 05:41] LABS: INR 3.4; PROTHROMBIN TIME 33.5 sec (9.1-11.1)
[2018-11-08] MEDS: POTASSIUM CHLORIDE 20MEQ/PACKET PO SCH (08:23)
[2018-11-08] MEDS: PANTOPRAZOLE SODIUM 40 MG/VIAL IV SCH (08:23)
[2018-11-08] MEDS: NYSTATIN POWDER 15GM TOP SCH ×3 (08:23→17:14)
[2018-11-08] MEDS ORDERED: FUROSEMIDE 40MG/4ML VIAL IVP NR (09:30)
[2018-11-08 09:49] LABS: PLATELET ESTIMATE NORMAL
[2018-11-08] MEDS: INSULIN GLARGINE UD 100 UNITS/ML SYR SUBCUT SCH ×2 (09:53→21:55)
[2018-11-08] MEDS ORDERED: DILTIAZEM HCL 5MG/ML 5ML VIAL IV PRN (10:15)
[2018-11-08 11:46] LABS: BG BASE EXCESS 10.8 mmol/L (-2.0-2.0); BG CARBOXYHEMOGLOBIN 0.7 % (0.5-1.5); BG DEOXYHEMOGLOBIN 2.1 % (0.0-5.0); BG FRACTION INSPIRED OXYGEN 40; BG METHEMOGLOBIN 0.1 % (0.0-1.5); BG OXYGEN SATURATION 97.9 % (92.0-98.5); BG OXYHEMOGLOBIN 97.1 % (94.0-97.0); BG PCO2 50.8 mmHg (35.0-45.0); BG PH 7.468 (7.350-7.450); BG PO2 118.2 mmHg (75.0-100.0); BG PRESSURE SUPPORT 8; BG SAMPLE SITE RIGHT RADIAL; BG TOTAL HEMOGLOBIN 10.9 g/dL (12.0-18.0); BG VENT MODE VENT - CPAP
[2018-11-08] MEDS: DILTIAZEM HCL 90MG TABLET PO SCH ×2 (13:29→21:39)
[2018-11-08] MEDS: IPRATROPIUM BROMIDE (0.02%) 0.5MG/2.5ML NEB HHN SCH ×2 (14:37→20:24)
[2018-11-08] MEDS: ATORVASTATIN CALCIUM 40MG TABLET PO SCH (21:39)
[2018-11-09] VITALS (47 sets, daily range): BP systolic 96–140; BP diastolic 52–84
[2018-11-09] MEDS: BLOOD SUGAR DIAGNOSTIC STRIP TEST SCH ×5 (00:06→21:00)
[2018-11-09] MEDS: INSULIN LISPRO 100 UNITS/ML SUBCUT SCH ×5 (00:13→21:50)
[2018-11-09] MEDS: IPRATROPIUM BROMIDE (0.02%) 0.5MG/2.5ML NEB HHN SCH ×3 (01:14→14:25)
[2018-11-09] MEDS: DILTIAZEM HCL 90MG TABLET PO SCH ×3 (05:13→21:48)
[2018-11-09] MEDS: CLINDAMYCIN 75 MG/5 ML PO SCH ×3 (05:13→22:01)
[2018-11-09] MEDS: CEPHALEXIN 250 MG/5 ML 100ML PO SCH ×3 (05:13→21:55)
[2018-11-09 05:42] LABS: INR 2.2; PROTHROMBIN TIME 21.9 sec (9.1-11.1)
[2018-11-09] MEDS: POTASSIUM CHLORIDE 20MEQ/PACKET PO SCH (08:54)
[2018-11-09] MEDS: METHYLPREDNISOLONE SOD SUCC 40 MG/ML VIAL IV SCH (08:54)
[2018-11-09] MEDS: PANTOPRAZOLE SODIUM 40 MG/VIAL IV SCH (08:54)
[2018-11-09] MEDS: NYSTATIN POWDER 15GM TOP SCH ×3 (08:54→17:57)
[2018-11-09 09:09] LABS: CHLORIDE 107 mEq/L (98-107); HEMOGLOBIN. 10.3 g/dL (12.0-16.0); MEAN CORPUSCULAR HEMOGLOBIN 24.8 pg (28.0-32.0); MEAN CORPUSCULAR VOLUME 79.5 fL (81.0-99.0); MEAN PLATELET VOLUME 8.4 fl (7.4-10.4); PLATELET 297 x1000/uL (130-400); RED BLOOD CELL COUNT 4.15 mill/uL (4.2-5.4); RED CELL DISTRIBUTION WIDTH 18.3 % (11.6-14.6)
[2018-11-09] MEDS: INSULIN GLARGINE UD 100 UNITS/ML SYR SUBCUT SCH ×2 (09:43→21:52)
[2018-11-09 12:10] LABS: PLATELET ESTIMATE NORMAL
[2018-11-09] MEDS ORDERED: WARFARIN SODIUM 5MG TABLET PO SCH (18:00)
[2018-11-09] MEDS: ATORVASTATIN CALCIUM 40MG TABLET PO SCH (21:48)
[2018-11-10] VITALS (21 sets, daily range): BP systolic 95–136; BP diastolic 41–99
[2018-11-10] MEDS: IPRATROPIUM BROMIDE (0.02%) 0.5MG/2.5ML NEB HHN SCH ×4 (02:11→21:07)
[2018-11-10] MEDS: ACETAMINOPHEN 325MG TABLET PO PRN (05:18)
[2018-11-10] MEDS: CEPHALEXIN 250 MG/5 ML 100ML PO SCH ×3 (05:20→21:54)
[2018-11-10] MEDS: CLINDAMYCIN 75 MG/5 ML PO SCH ×3 (05:20→21:53)
[2018-11-10] MEDS: DILTIAZEM HCL 90MG TABLET PO SCH ×3 (05:20→21:52)
[2018-11-10] MEDS: BLOOD SUGAR DIAGNOSTIC STRIP TEST SCH ×4 (07:04→21:42)
[2018-11-10 07:07] LABS: BASOPHILS % 0.1 % (0.0-2.0); EOSINOPHILS % 0.2 % (0.0-5.0); HEMATOCRIT. 31.7 % (36.0-48.0); LYMPHOCYTES % 11.6 % (20.0-50.0); MEAN CORPUSCULAR HEMOGLOBIN 25.2 pg (28.0-32.0); MEAN CORPUSCULAR VOLUME 79.5 fL (81.0-99.0); MEAN PLATELET VOLUME 8.3 fl (7.4-10.4); MONOCYTES % 9.7 % (2.0-8.0); NEUTROPHILS % 78.4 % (40.0-76.0); PLATELET 293 x1000/uL (130-400); RED BLOOD CELL COUNT 3.98 mill/uL (4.2-5.4); RED CELL DISTRIBUTION WIDTH 18.2 % (11.6-14.6)
[2018-11-10 07:11] LABS: INR 1.9; PROTHROMBIN TIME 18.6 sec (9.1-11.1)
[2018-11-10 07:19] LABS: CHLORIDE 103 mEq/L (98-107)
[2018-11-10] MEDS: INSULIN LISPRO 100 UNITS/ML SUBCUT SCH ×4 (07:50→21:50)
[2018-11-10] MEDS: PANTOPRAZOLE SODIUM 40 MG/VIAL IV SCH (08:10)
[2018-11-10] MEDS: POTASSIUM CHLORIDE 20MEQ/PACKET PO SCH (08:10)
[2018-11-10] MEDS: METHYLPREDNISOLONE SOD SUCC 40 MG/ML VIAL IV SCH (08:10)
[2018-11-10] MEDS: NYSTATIN POWDER 15GM TOP SCH ×3 (08:10→17:23)
[2018-11-10] MEDS: INSULIN GLARGINE UD 100 UNITS/ML SYR SUBCUT SCH ×2 (10:58→21:52)
[2018-11-10] MEDS ORDERED: WARFARIN SODIUM 5MG TABLET PO SCH (18:00)
[2018-11-10] MEDS: ATORVASTATIN CALCIUM 40MG TABLET PO SCH (21:52)
[2018-11-11] VITALS (16 sets, daily range): BP systolic 94–132; BP diastolic 49–87
[2018-11-11] MEDS: IPRATROPIUM BROMIDE (0.02%) 0.5MG/2.5ML NEB HHN SCH ×4 (02:23→20:12)
[2018-11-11] MEDS: DILTIAZEM HCL 90MG TABLET PO SCH ×3 (06:06→22:17)
[2018-11-11] MEDS: CLINDAMYCIN 75 MG/5 ML PO SCH ×3 (06:08→22:18)
[2018-11-11] MEDS: CEPHALEXIN 250 MG/5 ML 100ML PO SCH ×3 (06:09→22:18)
[2018-11-11] MEDS: BLOOD SUGAR DIAGNOSTIC STRIP TEST SCH ×4 (06:10→21:00)
[2018-11-11 06:23] LABS: INR 2.5; PROTHROMBIN TIME 24.5 sec (9.1-11.1)
[2018-11-11] MEDS: METHYLPREDNISOLONE SOD SUCC 40 MG/ML VIAL IV SCH (08:26)
[2018-11-11] MEDS: POTASSIUM CHLORIDE 20MEQ/PACKET PO SCH (08:26)
[2018-11-11] MEDS: FAMOTIDINE 20MG TABLET PO SCH (08:26)
[2018-11-11] MEDS: INSULIN LISPRO 100 UNITS/ML SUBCUT SCH ×7 (08:27→22:10)
[2018-11-11] MEDS: NYSTATIN POWDER 15GM TOP SCH ×3 (08:28→18:16)
[2018-11-11] MEDS: INSULIN GLARGINE UD 100 UNITS/ML SYR SUBCUT SCH ×2 (08:42→22:09)
[2018-11-11] MEDS: ACETAMINOPHEN 325MG TABLET PO PRN (12:11)
[2018-11-11] MEDS ORDERED: WARFARIN SODIUM 4MG TABLET PO NR (18:00)
[2018-11-11] MEDS: ATORVASTATIN CALCIUM 40MG TABLET PO SCH (22:17)
[2018-11-12] VITALS (13 sets, daily range): BP systolic 98–126; BP diastolic 52–79
[2018-11-12] MEDS: IPRATROPIUM BROMIDE (0.02%) 0.5MG/2.5ML NEB HHN SCH ×3 (01:51→19:54)
[2018-11-12] MEDS: DILTIAZEM HCL 90MG TABLET PO SCH ×2 (06:15→14:37)
[2018-11-12] MEDS: CEPHALEXIN 250 MG/5 ML 100ML PO SCH ×2 (06:16→14:39)
[2018-11-12] MEDS: CLINDAMYCIN 75 MG/5 ML PO SCH ×2 (06:16→14:37)
[2018-11-12] MEDS: BLOOD SUGAR DIAGNOSTIC STRIP TEST SCH ×3 (06:18→16:57)
[2018-11-12 06:57] LABS: INR 3.1; PROTHROMBIN TIME 30.3 sec (9.1-11.1)
[2018-11-12] MEDS: FAMOTIDINE 20MG TABLET PO SCH (08:34)
[2018-11-12] MEDS: METHYLPREDNISOLONE SOD SUCC 40 MG/ML VIAL IV SCH (08:34)
[2018-11-12] MEDS: INSULIN LISPRO 100 UNITS/ML SUBCUT SCH ×6 (08:36→17:02)
[2018-11-12] MEDS: NYSTATIN POWDER 15GM TOP SCH ×3 (08:43→17:03)
[2018-11-12] MEDS: POTASSIUM CHLORIDE 20MEQ/PACKET PO SCH (08:43)
[2018-11-12] MEDS: INSULIN GLARGINE UD 100 UNITS/ML SYR SUBCUT SCH (11:58)
== END 2018-11-12 20:16 | disposition home health service (06) | DRG 720 ==
LOC: ER 11:20 → 3WST 13:38 → EDBEDREQSVC 13:40 → EDBEDREQTM 13:40 → EDBEDREQ 13:40 → ENRESERV 22:24 → CVICU 11-04 09:07 → 3WST 11-10 03:58
PROVIDERS: ADMIT Internal Medicine; ATTEND Internal Medicine
PROC: 5A1955Z Respiratory Ventilation, Greater than 96 Consecutive Hours (ICD-10-PCS; principal; 2018-11-04)
PROC: 0BH17EZ Insertion of Endotracheal Airway into Trachea, Via Natural or Artificial Opening (ICD-10-PCS; 2018-11-04)
PROC: 5A09357 Assistance with Respiratory Ventilation, Less than 24 Consecutive Hours, Continuous Positive Airway Pressure (ICD-10-PCS; 2018-11-04)
PROC: 05HM33Z Insertion of Infusion Device into Right Internal Jugular Vein, Percutaneous Approach (ICD-10-PCS; 2018-11-04)
PROC: B543ZZA Ultrasonography of Right Jugular Veins, Guidance (ICD-10-PCS; 2018-11-04)
PROC: 0B21XEZ Change Endotracheal Airway in Trachea, External Approach (ICD-10-PCS; 2018-11-07)
DX: A41.9 Sepsis, unspecified organism (principal); J96.02 Acute respiratory failure with hypercapnia; E43 Unspecified severe protein-calorie malnutrition; E87.2 Acidosis; D68.9 Coagulation defect, unspecified; E11.65 Type 2 diabetes mellitus with hyperglycemia; E11.42 Type 2 diabetes mellitus with diabetic polyneuropathy; I27.20 Pulmonary hypertension, unspecified; I48.1 Persistent atrial fibrillation; I48.2 Chronic atrial fibrillation; G45.9 Transient cerebral ischemic attack, unspecified; I11.0 Hypertensive heart disease with heart failure; D64.9 Anemia, unspecified; E11.9 Type 2 diabetes mellitus without complications; E78.5 Hyperlipidemia, unspecified; E87.6 Hypokalemia; N39.0 Urinary tract infection, site not specified; E66.9 Obesity, unspecified; F41.1 Generalized anxiety disorder; M62.89 Other specified disorders of muscle; N76.6 Ulceration of vulva; B96.4 Proteus (mirabilis) (morganii) as the cause of diseases classified elsewhere; B96.20 Unspecified Escherichia coli [E. coli] as the cause of diseases classified elsewhere; I50.40 Unspecified combined systolic (congestive) and diastolic (congestive) heart failure; T38.0X5A Adverse effect of glucocorticoids and synthetic analogues, initial encounter; Z78.1 Physical restraint status; Z79.01 Long term (current) use of anticoagulants; Z79.4 Long term (current) use of insulin; Z79.899 Other long term (current) drug therapy; Z86.73 Personal history of transient ischemic attack (TIA), and cerebral infarction without residual deficits; Z91.19 Patient's noncompliance with other medical treatment and regimen; Z88.9 Allergy status to unspecified drugs, medicaments and biological substances; Z71.3 Dietary counseling and surveillance; Z68.36 Body mass index [BMI] 36.0-36.9, adult
CPT/HCPCS: 31500; 36415; 36569; 36600; 71045; 76937; 80048; 80202; 80305; 82375; 82805; 82962; 83036; 83735; 83880; 84134; 84145; 84478; 84484; 87070; 87077; 87186; 92610; 93005; 93306; 93970; 94002; 94003; 94640; 96374; 96376; 97163; 97166; 97530; 97535; 99291; A6261; C1725; C9113; J0461; J0696; J1650; J1815; J1940; J1956; J2060; J2704; J2920; J3370; J3490; J7040; J7050; J7060; J7620; A4315